=== PATIENT | female | born 1970 | race Hispanic/Latino ===

== ENCOUNTER 2017-10-20 08:59 | Emergency (ER) | payer SELFPAY ==
[2017-10-20] MEDS ORDERED: KETOROLAC 30 MG/ML INJ ONE (09:46)
[2017-10-20] MEDS ORDERED: ONDANSETRON 4 MG/2 ML VIAL ONE (09:46)
[2017-10-20] MEDS ORDERED: NA CHLORIDE 0.9% 1,000 ML ONE (09:46)
[2017-10-20 10:12] LABS: Absolute Lymphocytes (CBC) 2.4 K/uL (0.7-4.9); Absolute Monocytes 0.4 K/uL (0.1-1.3); Absolute Neutrophil 3.8 K/uL (1.8-8.0); Basophils % 0.4 % (0-1.3); Eosinophils % 0.7 % (0-4.4); Hematocrit 37.7 % (36.0-45.0); Lymphocytes % 35.9 % (15.3-44.8); MCH 32.1 pg (27.0-35.0); MCV 96.4 fL (80-100); MPV 8.7 fL (7.6-11.3); Monocytes % 5.9 % (3.3-12.3); RBC Red Blood Cell Count 3.91 M/uL (3.86-4.86)
[2017-10-20 10:14] LABS: Urine Bacteria <20 /HPF (<20); Urine RBC <5 /HPF (NONE SEEN)
[2017-10-20 10:15] LABS: Urine Culture Reflex Order NOT NEEDED
[2017-10-20 10:16] LABS: Urine Blood TRACE (NEG); Urine Glucose NEGATIVE (NEG); Urine Protein NEGATIVE (NEG); Urine Specific Gravity 1.025 (1.005-1.030); Urine pH 6.5 (5.0-7.0)
[2017-10-20 10:18] LABS: Bicarbonate 27 mEq/L (21-31); Glucose Level 110 mg/dL (65-120); Lipase 20 U/L (22-51); Potassium 3.8 mEq/L (3.6-5.0); Sodium Level 138 mEq/L (135-145)
[2017-10-20 10:25] LABS: ALT/SGPT 22 IU/L (10-60); AST/SGOT 24 IU/L (10-42); Albumin 3.9 g/dL (3.2-5.5); Alkaline Phosphatase 90 IU/L (42-121); Amylase Level 36 U/L (28-100); BUN Blood Urea Nitrogen 19 mg/dL (6-20); Bilirubin Direct 0.1 mg/dL (0-0.2); Bilirubin Total 0.3 mg/dL (0.3-1.2)
--- NOTE | 2017-10-20 12:34 | ER ---
Nurse's Notes [facility] Name: lFores Brooks Age: 47 yrs Sex: Female : 1970 Arrival Date: 10/20/2017 Time: 09:03 Bed 15 Private MD: None, None Diagnosis: Low back pain Presentation: 10/20 09:15 Presenting complaint: Patient states: c/o low back pain that radiates to RLQ X 3 weeks, iw has gotten worse over past 4 days, denies injury, denies n/v/d, no pain with urination. Transition of care: patient was not received from another setting of care. Onset of symptoms was October 03, 2017. 09:15 Method Of Arrival: Wheelchair iw 09:15 Acuity: BEATRICE 3 iw 09:22 Risk Assessment: Do you want to hurt yourself or someone else? Patient reports no tw2 desire to harm self or others. Care prior to arrival: None. 09:22 Initial Sepsis Screen: Does the patient meet any 2 criteria? No. Patient's initial tw2 sepsis screen is negative. Does the patient have a suspected source of infection? No. Patient's initial sepsis screen is negative. 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 - Social history:: Smoking status: Patient/guardian denies using tobacco. - Ebola Screening: : Patient denies travel to an Ebola-affected area in the 21 days before illness onset. Screenin:22 Abuse screen: Denies threats or abuse. Nutritional screening: No deficits noted. tw2 Tuberculosis screening: No symptoms or risk factors identified. Fall Risk None identified. Assessment: 09:15 General: Appears in no apparent distress. obese, Behavior is calm, cooperative, tw2 appropriate for age. Pain: Complains of pain in abdomen Pain radiates to back. Neuro: Level of Consciousness is awake, alert, obeys commands, Oriented to person, place, time, situation. Cardiovascular: Denies chest pain, shortness of breath, Heart tones S1 S2 Capillary refill < 3 seconds Patient's skin is warm and dry. Respiratory: Airway is patent Respiratory effort is even, unlabored, Respiratory pattern is regular, symmetrical, Breath sounds are clear bilaterally. GI: Abdomen is round non-distended, obese, Bowel sounds present X 4 quads. Reports lower abdominal pain, upper abdominal pain. : No signs and/or symptoms were reported regarding the genitourinary system. EENT: No signs and/or symptoms were reported regarding the EENT system. Derm: No signs and/or symptoms reported regarding the dermatologic system. Skin is intact, is healthy with good turgor, Skin temperature is warm. Musculoskeletal: Range of motion: intact in all extremities. 10:10 Reassessment: pt taken to scan at this time. tw2 10:34 Reassessment: Patient appears in no apparent distress at this time. No changes from tw2 previously documented assessment. Patient and/or family updated on plan of care and expected duration. Pain level reassessed. Patient is alert, oriented x 3, equal unlabored respirations, skin warm/dry/pink. 11:25 Reassessment: Patient appears in no apparent distress at this time. No changes from tw2 previously documented assessment. Patient and/or family updated on plan of care and expected duration. Pain level reassessed. Patient is alert, oriented x 3, equal unlabored respirations, skin warm/dry/pink. 12:00 Reassessment: Patient appears in no apparent distress at this time. No changes from tw2 previously documented assessment. Patient and/or family updated on plan of care and expected duration. Pain level reassessed. Patient is alert, oriented x 3, equal unlabored respirations, skin warm/dry/pink. 12:54 Reassessment: Patient appears in no apparent distress at this time. No changes from tw2 previously documented assessment. Patient and/or family updated on plan of care and expected duration. Pain level reassessed. Patient is alert, oriented x 3, equal unlabored respirations, skin warm/dry/pink. Vital Signs: 09:21 BP 161 / 85; Pulse 76; Resp 18; Pulse Ox 96% on R/A; tw2 10:34 BP 122 / 71; Pulse 64; Resp 17; Pulse Ox 97% on R/A; tw2 11:25 BP 125 / 65; Pulse 62; Resp 17; Pulse Ox 98% on R/A; tw2 11:28 Temp 98.4(O); tw2 12:00 BP 121 / 99; Pulse 63; Resp 17; Pulse Ox 99% on R/A; tw2 12:53 BP 116 / 52; Pulse 67; Resp 17; Pulse Ox 97% on R/A; tw2 ED Course: 09:03 Patient arrived in ED. mr 09:04 None, None is Private Physician. mr 09:15 Umair Grady PA is PHCP. cp 09:15 Rosas Cope MD is Attending Physician. cp 09:16 Palmira Scanlon, RUBINA is Primary Nurse. tw2 09:21 Arm band placed on. tw2 09:21 Placed in gown. Bed in low position. Call light in reach. Adult w/ patient. Pulse ox tw2 on. NIBP on. 09:31 Triage completed. iw 09:50 Radiology exam delayed due to test not completed at this time. cw1 10:01 Note: neg upt per nicci king tech. cw1 10:07 Missed attempt(s): 22 gauge in right forearm. antecubital area. mh5 10:07 Initial lab(s) drawn, by wv, sent to lab. Urine collected: clean catch specimen, clear. mh5 10:08 Amylase, Serum Sent. mh5 10:09 Basic Metabolic Panel Sent. mh5 10:09 CBC with Diff Sent. mh5 10:09 Creatinine for Radiology Sent. mh5 10:10 Hepatic Function Sent. mh5 10:10 Lipase Sent. mh5 10:11 No provider procedures requiring assistance completed. Inserted saline lock: 22 gauge tw2 in left antecubital area, using aseptic technique. Blood collected. 10:21 CT completed. Patient tolerated procedure well. Patient moved back from CT. cw1 10:21 CT Stone Protocol In Process Unspecified. EDMS 12:55 Awaiting: completion of iv fluids prior to discharge. tw2 13:09 IV discontinued, intact, bleeding controlled, No redness/swelling at site. Pressure tw2 dressing applied. Administered Medications: 10:00 Drug: Zofran 4 mg Route: IVP; Site: left antecubital; tw2 11:27 Follow up: Response: No adverse reaction tw2 10:02 Drug: TORadol 30 mg Route: IVP; Site: left antecubital; tw2 11:27 Follow up: Response: No adverse reaction; Pain is decreased tw2 10:04 Drug: NS 0.9% 1000 ml Route: IV; Rate: 1 bolus; Site: left antecubital; tw2 12:54 Follow up: Response: No adverse reaction; IV Status: Completed infusion; IV Intake: tw2 1000ml Intake: 12:54 IV: 1000ml; Total: 1000ml. tw2 Outcome: 12:34 Discharge ordered by MD. aleksandra 13:09 Discharged to home ambulatory, with friend. tw2 13:09 Condition: stable 13:09 Discharge instructions given to patient, friend, Instructed on discharge instructions, follow up and referral plans. no drinking with medication, no driving heavy equipment, medication usage, Demonstrated understanding of instructions, follow-up care, medications, Prescriptions given X 2. 13:10 Patient left the ED. tw2 Signatures: Dispatcher [employer] EDKY Erika Fagan Irene, RN Renetta Smith 1 Umair Grady PA PA cp Wise, Tara, RN RN 2 Erika Haley [facility]
--- NOTE | 2017-10-20 12:34 | EDPHYS ---
Physician Documentation [facility] Name: Flores Brooks Age: 47 yrs Sex: Female : 1970 Arrival Date: 10/20/2017 Time: 09:03 Bed 15 Private MD: None, None ED Physician Rosas Cope HPI: 10/20 09:47 This 47 yrs old Female presents to ER via Wheelchair with complaints of Back cp Pain, Abdominal Pain. 09:47 The patient complains of pain in the right mid back and right low back. The pain cp radiates to the abdomen. Onset: The symptoms/episode began/occurred 4 day(s) ago. Modifying factors: The symptoms are alleviated by nothing. the symptoms are aggravated by nothing. Associated signs and symptoms: Pertinent negatives: diarrhea, dysuria, fever, pain radiating to the lower extremities, vomiting. Severity of pain: in the emergency department the pain has improved mildly. 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 - Social history:: Smoking status: Patient/guardian denies using tobacco. - Ebola Screening: : Patient denies travel to an Ebola-affected area in the 21 days before illness onset. ROS: 09:48 Eyes: Negative for injury, pain, redness, and discharge. cp 09:48 Constitutional: Negative for body aches, chills, fever, poor PO intake. 09:48 ENT: Negative for drainage from ear(s), ear pain, sore throat, difficulty swallowing, difficulty handling secretions. 09:48 Cardiovascular: Negative for chest pain, edema, palpitations. 09:48 Respiratory: Negative for cough, shortness of breath, wheezing. 09:48 Back: Positive for flank pain, on the right. 09:48 : Negative for urinary symptoms. 09:48 Skin: Negative for cellulitis, rash. 09:48 Neuro: Negative for altered mental status, headache, weakness. 09:48 All other systems are negative. Exam: 10:00 Constitutional: The patient appears in no acute distress, alert, awake, non-toxic, well cp developed, well nourished, obese. 10:00 Head/Face: Normocephalic, atraumatic. Eyes: Pupils equal round and reactive to light, cp extra-ocular motions intact. Lids and lashes normal. Conjunctiva and sclera are non-icteric and not injected. Cornea within normal limits. Periorbital areas with no swelling, redness, or edema. ENT: Nares patent. No nasal discharge, no septal abnormalities noted. Tympanic membranes are normal and external auditory canals are clear. Oropharynx with no redness, swelling, or masses, exudates, or evidence of obstruction, uvula midline. Mucous membranes moist. Chest/axilla: Normal chest wall appearance and motion. Nontender with no deformity. No lesions are appreciated. 10:00 Cardiovascular: Rate: normal, Rhythm: regular, Edema: is not appreciated, JVD: is not appreciated. 10:00 Respiratory: the patient does not display signs of respiratory distress, Respirations: normal, no use of accessory muscles, no retractions, no splinting, no tachypnea, labored breathing, is not present, Breath sounds: are clear throughout, no decreased breath sounds, no stridor, no wheezing. 10:00 Abdomen/GI: Inspection: obese Bowel sounds: active, all quadrants, Palpation: abdomen is soft and non-tender, in all quadrants, rebound tenderness, is not appreciated, voluntary guarding, is not appreciated, involuntary guarding, is not appreciated. 10:00 Back: pain, that is mild, of the right low back, ROM is normal, vertebral tenderness, is not appreciated, muscle spasm, is not present, Straight leg raises: of both lower extremities does not illicit pain. 10:00 Skin: cellulitis, is not appreciated, no rash present. cp 10:00 Neuro: Orientation: to person, place \T\ time. Mentation: lucid, able to follow commands, cp Motor: moves all fours, strength is normal, Sensation: no obvious gross deficits, Gait: is steady, at a normal pace, without difficulty. Vital Signs: 09:21 BP 161 / 85; Pulse 76; Resp 18; Pulse Ox 96% on R/A; tw2 10:34 BP 122 / 71; Pulse 64; Resp 17; Pulse Ox 97% on R/A; tw2 11:25 BP 125 / 65; Pulse 62; Resp 17; Pulse Ox 98% on R/A; tw2 11:28 Temp 98.4(O); tw2 12:00 BP 121 / 99; Pulse 63; Resp 17; Pulse Ox 99% on R/A; tw2 12:53 BP 116 / 52; Pulse 67; Resp 17; Pulse Ox 97% on R/A; tw2 MDM: 09:15 Patient medically screened. 12:31 Data reviewed: vital signs, nurses notes, lab test result(s), radiologic studies, CT cp scan, and as a result, I will discharge patient. 10/20 09:31 Order name: Urine Dipstick--Ancillary (enter results); Complete Time: 10: 10/20 10:27 Interpretation: Normal except: UBLD TRACE. 10/20 09:31 Order name: Urine --Ancillary (enter results); Complete Time: 10: 10/20 09:38 Order name: Amylase, Serum; Complete Time: 10:27 10/20 09:38 Order name: Basic Metabolic Panel; Complete Time: 10:27 10/20 10:27 Interpretation: Normal except: CRE 0.43. 10/20 09:38 Order name: CBC with Diff; Complete Time: 10:27 10/20 09:38 Order name: Creatinine for Radiology; Complete Time: 10:27 10/20 09:38 Order name: Urine Test (obtain specimen); Complete Time: 10:10 10/20 09:38 Order name: Hepatic Function; Complete Time: 10:27 10/20 11:09 Interpretation: Reviewed. 10/20 09:38 Order name: Lipase; Complete Time: 10:27 10/20 10:27 Interpretation: LIP 20; Reviewed. 10/20 09:38 Order name: Urine Microscopic Only; Complete Time: 10:27 10/20 11:46 Interpretation: Reviewed. 10/20 09:39 Order name: CT Stone Protocol 10/20 09:38 Order name: IV Saline Lock; Complete Time: 10:11 10/20 09:38 Order name: Labs collected and sent; Complete Time: 10:11 10/20 09:38 Order name: Urine Dipstick-Ancillary (obtain specimen); Complete Time: 10:11 cp Administered Medications: 10:00 Drug: Zofran 4 mg Route: IVP; Site: left antecubital; tw2 11:27 Follow up: Response: No adverse reaction tw2 10:02 Drug: TORadol 30 mg Route: IVP; Site: left antecubital; tw2 11:27 Follow up: Response: No adverse reaction; Pain is decreased tw2 10:04 Drug: NS 0.9% 1000 ml Route: IV; Rate: 1 bolus; Site: left antecubital; tw2 12:54 Follow up: Response: No adverse reaction; IV Status: Completed infusion; IV Intake: tw2 1000ml Disposition: 10/20/17 12:34 Discharged to Home. Impression: Low back pain. - Condition is Stable. - Discharge Instructions: Back Pain, Adult, Back Exercises, Aoco-ef-Spie. - Prescriptions for Naprosyn 500 mg Oral Tablet - take 1 tablet by ORAL route 2 times per day take with food; 20 tablet. Cyclobenzaprine 10 mg Oral Tablet - take 1 tablet by ORAL route every 8 hours As needed no driving while taking medication; 20 tablet. - Medication Reconciliation Form, Thank You Letter, Antibiotic Education, Prescription Opioid Use form. - Follow up: Private Physician; When: 1 - 2 days; Reason: Recheck today's complaints. - Problem is new. - Symptoms have improved. Addendum: 10/28/2017 11:52 Co-signature as Attending Physician, Rosas Cope MD Available for consultation at p s1 all times. . Signatures: Dispatcher [employer] EDKatherine De Santiago RN RN iw Umair Grady PA PA cp Palmira Scanlon RN RN tw2 Rosas Cope MD MD ps1 Corrections: (The following items were deleted from the chart) 10/20 13:10 12:34 10/20/2017 12:34 Discharged to Home. Impression: Low back pain. Condition is tw2 Stable. Forms are Medication Reconciliation Form, Thank You Letter, Antibiotic Education, Prescription Opioid Use. Follow up: Private Physician; When: 1 - 2 days; Reason: Recheck today's complaints. Problem is new. Symptoms have improved. cp
--- NOTE | 2017-10-20 13:32 | RAD REPORT ---
EXAM DESCRIPTION: CT - Stone Protocol - 10/20/2017 10:21 am CLINICAL HISTORY: Abdominal pain, right lower quadrant pain. Due to technical issues with the PACs system a final report could not be generated. Images were revie wed and findings telephoned to the clinician at the time of the study. COMPARISON: None. TECHNIQUE: Axial 5 mm thick images were obtained without oral or IV contrast. The [id number] span s the entirety of the system partially obscuring uppermost abdomen and lung bases. All CT scans are performed using dose optimization technique as appropriate and may include automated exposure control or mA/KV adjustment according to patient size. FINDINGS: No hydronephrosis is present and no obstructing ureteral calculi. No suspicious renal mass es. Isodense masses and pyelonephritis are not excluded on a stone protocol CT scan. Mostly contracte d urinary bladder shows no suspicious finding. Uterus and ovaries show no suspicious findings. IUD is in place appearing well positioned. Liver shows fatty infiltration. Liver size is normal with no focal liver lesion. Spleen and pancreas also without suspicious finding. No gallbladder or biliary tree abnormality identified. No significan t adrenal finding. No suspicious bowel findings. No appendicitis. No hernia, mass or bulky lymphadenopathy noted. No free air, free fluid or inflammatory stranding. Disc and bony degenerative changes are present. Patient has pronounced degenerative change in the fac et joints at L5-S1 resulting in spinal stenosis and S1 lateral recess stenosis. IMPRESSION: No appendicitis or other acute GI process seen. 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 Fatty infiltration of the liver. Advanced facet joint degenerative change at L5-S1 causing spinal stenosis and S1 lateral recess steno sis. Less significant degenerative changes elsewhere in the lumbar spine. Isodense masses and pyelonephritis are not excluded on stone protocol technique.
== END 2017-10-20 13:10 | disposition home or self-care (01) ==
LOC: ER 08:59
DX: M54.5 Low back pain (principal); I10 Essential (primary) hypertension
CPT/HCPCS: 36415; 74176; 76377; 80048; 80076; 81003; 81015; 81025; 82150; 83690; 85025; 96361; 96374; 96375; 99284; J2405; J7030

== ENCOUNTER 2021-07-17 16:08 | Emergency (ER) | payer SELFPAY ==
[2021-07-17 18:34] LABS: SARS-COV-2 RT PCR NEGATIVE (NEGATIVE)
--- NOTE | 2021-07-17 18:46 | EDPHYS ---
Physician Documentation [facility] Name: Flores Brooks Age: 51 yrs Sex: Female : 1970 Arrival Date: 07/17/2021 Time: 16:11 Bed 12 Private MD: ED Physician Umair Kennedy HPI: 07/17 18:44 This 51 yrs old Female presents to ER via Ambulatory with complaints of Sore jr8 Throat. 18:44 Onset: The symptoms/episode began/occurred gradually. Severity of symptoms: At their jr8 worst the symptoms were mild, in the emergency department the symptoms are unchanged. Modifying factors: The symptoms are alleviated by nothing, the symptoms are aggravated by nothing. Associated signs and symptoms: The patient has no apparent associated signs or symptoms. The patient has not experienced similar symptoms in the past. The patient has not recently seen a physician. Historical: - Allergies: 16:37 NKA; ph - PMHx: 16:37 Hypertension; Diabetes mellitus; ph - Immunization history:: Adult Immunizations unknown. - Social history:: Smoking status: unknown. ROS: 18:44 Eyes: Negative for injury, pain, redness, and discharge, Neck: Negative for injury, jr8 pain, and swelling, Cardiovascular: Negative for chest pain, palpitations, and edema, Respiratory: Negative for shortness of breath, cough, wheezing, and pleuritic chest pain, Abdomen/GI: Negative for abdominal pain, nausea, vomiting, diarrhea, and constipation, Back: Negative for injury and pain, MS/Extremity: Negative for injury and deformity, Skin: Negative for injury, rash, and discoloration, Neuro: Negative for headache, weakness, numbness, tingling, and seizure. 18:44 ENT: Positive for sore throat. Exam: 18:44 Eyes: Pupils equal round and reactive to light, extra-ocular motions intact. Lids and jr8 lashes normal. Conjunctiva and sclera are non-icteric and not injected. Cornea within normal limits. Periorbital areas with no swelling, redness, or edema. ENT: Nares patent. No nasal discharge, no septal abnormalities noted. Tympanic membranes are normal and external auditory canals are clear. Oropharynx with no redness, swelling, or masses, exudates, or evidence of obstruction, uvula midline. Mucous membranes moist. Neck: Trachea midline, no thyromegaly or masses palpated, and no cervical lymphadenopathy. Supple, full range of motion without nuchal rigidity, or vertebral point tenderness. No Meningismus. Cardiovascular: Regular rate and rhythm with a normal S1 and S2. No gallops, murmurs, or rubs. Normal PMI, no JVD. No pulse deficits. Respiratory: Lungs have equal breath sounds bilaterally, clear to auscultation and percussion. No rales, rhonchi or wheezes noted. No increased work of breathing, no retractions or nasal flaring. Abdomen/GI: Soft, non-tender, with normal bowel sounds. No distension or tympany. No guarding or rebound. No evidence of tenderness throughout. Skin: Warm, dry with normal turgor. Normal color with no rashes, no lesions, and no evidence of cellulitis. MS/ Extremity: Pulses equal, no cyanosis. Neurovascular intact. Full, normal range of motion. Neuro: Awake and alert, GCS 15, oriented to person, place, time, and situation. Cranial nerves II-XII grossly intact. Motor strength 5/5 in all extremities. Sensory grossly intact. Vital Signs: 16:35 BP 155 / 77; Pulse 69; Resp 18; Temp 99.0; Pulse Ox 98% on R/A; ph 19:06 Pulse 70; Resp 17 S; Pulse Ox 99% on R/A; jd3 MDM: 18:33 Patient medically screened. [facility] 18:44 Data reviewed: vital signs, nurses notes, lab test result(s), and as a result, I will [facility] discharge patient. Data interpreted: Pulse oximetry: on room air is 98 %. Interpretation: normal. Counseling: I had a detailed discussion with the patient and/or guardian regarding: the historical points, exam findings, and any diagnostic results supporting the discharge/admit diagnosis, lab results, the need for outpatient follow up, a family practitioner, to return to the emergency department if symptoms worsen or persist or if there are any questions or concerns that arise at home. 07/17 16:38 Order name: Strep; Complete Time: 18:36 ph 07/17 16:39 Order name: Group A Streptococcus Rapid Sc; Complete Time: 18:33 EDMS 07/17 17:29 Order name: Throat Culture EDMS Administered Medications: 18:53 Drug: SOLU-Medrol (methylPREDNISolone sodium succinate) 125 mg Route: IM; Site: left jd3 deltoid; Disposition Summary: 07/17/21 18:46 Discharge Ordered Location: Home jr8 Problem: new jr8 Symptoms: have improved jr8 Condition: Stable jr8 Diagnosis - Acute laryngopharyngitis jr8 Followup: jr8 - With: Private Physician - When: 2 - 3 days - Reason: Recheck today's complaints, Continuance of care, Re-evaluation by your physician Discharge Instructions: - Discharge Summary Sheet jr8 - Laryngitis jr8 - Pharyngitis jr8 Forms: - Medication Reconciliation Form jr8 - Thank You Letter jr8 - Antibiotic Education jr8 - Prescription Opioid Use jr8 Prescriptions: - Tessalon Perles 100 mg Oral Capsule - take 1 capsule by ORAL route every 8 hours As needed; 15 capsule; Refills: 0, jr8 Product Selection Permitted Signatures: Dispatcher [employer] EDMS Yoel Vee PA PA jr8 Yarely Souza RN RN Felipe Champion RN RN jd3 Corrections: (The following items were deleted from the chart) 17:53 16:41 COVID-19/FLU [id number] ordered. EDMS EDMS
--- NOTE | 2021-07-17 18:46 | ER ---
Nurse's Notes [facility] Name: Flores Brooks Age: 51 yrs Sex: Female : 1970 Arrival Date: 07/17/2021 Time: 16:11 Bed 12 Private MD: Diagnosis: Acute laryngopharyngitis Presentation: 07/17 16:35 Chief complaint: Patient states: Cough for 2 weeks, also reports sore throat, body ph aches, fever, headache, ad rib pain that she believes is r/t cough, denies SOB, N/V/D. Coronavirus screen: Client presents with at least one sign or symptom that may indicate coronavirus-19. Ebola Screen: No symptoms or risks identified at this time. 16:35 Method Of Arrival: Ambulatory ph 16:37 Initial Sepsis Screen: Does the patient meet any 2 criteria? No. Patient's initial ph sepsis screen is negative. Does the patient have a suspected source of infection? No. Patient's initial sepsis screen is negative. Risk Assessment: Do you want to hurt yourself or someone else? Patient reports no desire to harm self or others. Onset of symptoms was July 17, 2021. 16:37 Acuity: BEATRICE 4 ph Historical: - Allergies: 16:37 NKA; ph - PMHx: 16:37 Hypertension; Diabetes mellitus; ph - Immunization history:: Adult Immunizations unknown. - Social history:: Smoking status: unknown. Screenin:05 Abuse screen: Denies threats or abuse. Nutritional screening: No deficits noted. jd3 Tuberculosis screening: No symptoms or risk factors identified. Fall Risk Ambulatory Aid- None/Bed Rest/Nurse Assist (0 pts). Gait- Normal/Bed Rest/Wheelchair (0 pts) Mental Status- Oriented to own ability (0 pts). Total Dorman Fall Scale indicates No Risk (0-24 pts). Assessment: 19:05 General: Appears in no apparent distress. comfortable, Behavior is calm, cooperative, jd3 appropriate for age. Pain: Complains of pain in throat. Neuro: Level of Consciousness is awake, alert, obeys commands, Oriented to person, place, time, situation. Cardiovascular: Denies chest pain, Capillary refill < 3 seconds Patient's skin is warm and dry. Respiratory: Reports cough that is persistent Airway is patent Respiratory effort is even, unlabored, Respiratory pattern is regular, symmetrical. GI: No signs and/or symptoms were reported involving the gastrointestinal system. : No signs and/or symptoms were reported regarding the genitourinary system. EENT: Throat is reddened. Derm: Skin is intact, Skin is dry, Skin is normal, Skin temperature is warm. Musculoskeletal: Circulation, motion, and sensation intact. Range of motion: intact in all extremities. Vital Signs: 16:35 BP 155 / 77; Pulse 69; Resp 18; Temp 99.0; Pulse Ox 98% on R/A; ph 19:06 Pulse 70; Resp 17 S; Pulse Ox 99% on R/A; jd3 ED Course: 16:11 Patient arrived in ED. ds1 16:37 Triage completed. ph 16:37 Arm band placed on Patient placed. ph 18:33 Yoel Vee PA is PHCP. jr8 18:33 Umair Kennedy MD is Attending Physician. jr8 18:46 Mitra Mark RN is Primary Nurse. ke1 18:53 Primary Nurse role handed off by Mitra Mark RN j 18:53 Felipe Champion RN is Primary Nurse. jd3 19:06 Patient has correct armband on for positive identification. Bed in low position. Call jd3 light in reach. Side rails up X 1. Pulse ox on. NIBP on. 19:06 No provider procedures requiring assistance completed. Patient did not have IV access jd3 during this emergency room visit. Administered Medications: 18:53 Drug: SOLU-Medrol (methylPREDNISolone sodium succinate) 125 mg Route: IM; Site: left jd3 deltoid; Outcome: 18:46 Discharge ordered by . jr8 19:08 Condition: stable jd3 19:08 Discharge instructions given to patient, Instructed on discharge instructions, follow up and referral plans. medication usage, Demonstrated understanding of instructions, follow-up care, medications, Prescriptions given X 1. 19:11 Discharged to home ambulatory, with family. jd3 19:12 Patient left the ED. jd3 Signatures: Reva De Los Santos ds1 Yoel Vee PA PA jr8 Yarely Souza RN RN Felipe Champion RN RN j Ebrottie, Kouassi, RN RN ke1
[2021-07-17] MEDS ORDERED: METHYLPREDNISOLONE 125 MG INJ ONE (18:51)
[2021-07-17 20:12] VITALS: BP 155/77; TEMP 99
[2021-07-17 20:14] VITALS: O2SAT 99
== END 2021-07-17 19:12 | disposition home or self-care (01) ==
LOC: ER 16:08
DX: J06.0 Acute laryngopharyngitis (principal); I10 Essential (primary) hypertension; Z20.822 Contact with and (suspected) exposure to COVID-19
CPT/HCPCS: 0240U; 87070; 87081; 96372; 99283; J2930

== ENCOUNTER 2024-04-15 18:19 | Inpatient (IN) | payer SELFPAY ==
--- OUTSIDE RECORDS SUMMARY | 2024-04-15 18:23 | XMS REPORT | Continuity of Care Document ---
Author Name Unknown Address [address] [facility] [place] [address] [facility] thconnect Address [address] [facility] [place] [address] Care Team Providers Care [employer] Name Role Phone PCP, PATIENT DOES NOT HAVE A Primary Care Physic monse Unavailable Vanessa Nayak NP Attending Clinician VANESSA NAYAK Attending Clinician Unavailable Payers Payer Name Policy Type Policy Number Effective Date Expirati on Date Source Problems Condition Name Condition Details Condition Category Status Onset Date Resolution Date Last Treatment Date Treating Clinician Comments Source Trigeminal neuralgia Trigeminal neuralgia Disease Recurre nce 01-16 00:00: 00 Overview: Formattin g of this note might be different from the original. Chronic problem General acute hospital COVID-19 COVID-19 Disease Active 01-16 00:00: 00 General acute hospital Encounter for medication refill Encounter for medication refill Disease Active 01-16 00:00: 00 General acute hospital Primary hypertensi on Primary hypertensi on Disease Active 01-16 00:00: 00 General acute hospital Face pain Face pain Disease Active 06-30 00:00: 00 General acute hospital Allergies, Adverse Reactions, Alerts Allergy Name Allergy Type Status Severity Reaction(s) Onset Date Inactive Date Treating Clinician Comments Source NO KNOWN ALLERGIE S Drug Class Active General acute hospital Social History Social Habit Start Date Stop Date Quantity Comments Source Sexual orientation U [facility] Sex assigned at 1970 00:00:00 1970 00:00:00 [facility] Smoking Status Start Date Stop Date Source Tobacco smoking consumption unknown [facility] Medications Ordered Medication Name Filled Medication Name Start Date Stop Date Current Medication? Ordering Clinician Indication Dosage Frequency Signature (SIG) Comments Components Source acetaminoph en (TYLENOL) tablet 650 mg 01-16 14:30: 00 01-16 14:38 :00 No 650mg 650 mg, Oral, ONCE, 1 dose, On Sat01/17/24 at 0930, LINDSAY General acute hospital amLODIPine 10 mg tablet 01-16 00:00: 00 02-16 04:59 :00 Yes [id number] 10mg Take 1 tablet by mouth daily for 30 days. General acute hospital lisinopriL- hydrochloro thiazide 20-25 mg per tablet 01-16 00:00: 00 02-16 04:59 :00 Yes [id number] 1{tbl} Take 1 tablet by mouth daily for 30 days. General acute hospital triamcinolo ne acetonide 0.1 % topical cream 10-02 00:00: 00 Yes % Ricardo Shital Van clobetasol 0.05 % scalp solution 10-02 00:00: 00 Yes % Ricardo Shital Van carbamazepi ne 200 mg tablet 09-26 00:00: 00 Yes mg Ricardo Araujo INSTILL 1-2 DROPS INTO EACH EAR TWICE DAILY FOR 2 WEEKS PER MONTH. 09-18 00:00: 00 Yes Ricardo Shital Van triamcinolo ne acetonide 0.1 % topical cream 09-11 00:00: 00 Yes % Ricardo Shital Van atorvastati n 40 mg tablet 2022-05 00:00: 00 Yes mg Ricardo Araujo metformin 500 mg tablet 2022-05 00:00: 00 Yes mg Ricardo Araujo amlodipine 10 mg tablet 2022-05 00:00: 00 Yes mg Ricardo Araujo lisinopril 20 mg-hydrochl orothiazide 25 mg tablet 2023-1 1-16 00:00: 00 Yes mg Ricardo Araujo TAKE 1 TABLET DAILY. 2022-05 0-16 00:00: 00 10-03 00:00 :00 No [id number] Ricardo Araujo TAKE 1 TABLET DAILY. 2022-05 016 00:00: 00 10-03 00:00 :00 No 40 Ricardo Araujo TAKE 1 TABLET DAILY. 2022-05 00:00: 00 10-03 00:00 :00 No 500 Ricardo Araujo TAKE 1 TABLET DAILY. 2022-05 016 00:00: 00 10-03 00:00 :00 No 10 Ricardo Aarujo TAKE 3 TABLETS BY MOUTH THREE TIMES DAILY 01-09 00:00: 00 Yes Ricardo Araujo TAKE 1 TABLET DAILY. 12-26 00:00: 00 Yes 40 Ricardo Araujo TAKE 1 TABLET DAILY. 12-26 00:00: 00 Yes Ricardo Araujo Dose Unknown 12-26 00:00: 00 Yes Ricardo Araujo Dose Unknown 12-26 00:00: 00 Yes Ricardo Araujo TAKE 1 TABLET DAILY. 12-20 00:00: 00 Yes Ricardo Araujo TAKE 1 TABLET DAILY. 12-20 00:00: 00 No [id number] amlodipine 10 mg tablet 12-08 00:00: 00 Yes 1mg Ricardo Araujo metformin 500 mg tablet 12-08 00:00: 00 Yes 1mg Ricardo Araujo lisinopril 20 mg-hydrochl orothiazide 12.5 mg tablet 12-08 00:00: 00 Yes 1mg Ricardo Araujo atorvastati n 20 mg tablet 12-08 00:00: 00 Yes 2mg Ricardo Araujo amlodipine 10 mg tablet 12-08 00:00: 00 No 1mg metformin 500 mg tablet 12-08 00:00: 00 No 1mg lisinopril 20 mg-hydrochl orothiazide 12.5 mg tablet 12-08 00:00: 00 No 1mg atorvastati n 20 mg tablet 12-08 00:00: 00 No 2mg ketoconazol e 2 % shampoo 11-25 00:00: 00 Yes 1% Ricardo Araujo metformin 500 mg tablet 11-25 00:00: 00 Yes 1mg iRcardo Araujo amlodipine 10 mg tablet 11-25 00:00: 00 Yes 1mg Ricardo Araujo lisinopril 20 mg-hydrochl orothiazide 12.5 mg tablet 11-25 00:00: 00 Yes 1mg Ricardo Araujo atorvastati n 20 mg tablet 11-25 00:00: 00 Yes 1mg Ricardo Araujo clobetasol 0.05 % scalp solution 11-25 00:00: 00 Yes 1% Ricardo Araujo ketoconazol e 2 % shampoo 11-25 00:00: 00 No 1% metformin 500 mg tablet 11-25 00:00: 00 No 1mg amlodipine 10 mg tablet 11-25 00:00: 00 No 1mg lisinopril 20 mg-hydrochl orothiazide 12.5 mg tablet 11-25 00:00: 00 No 1mg atorvastati n 20 mg tablet 11-25 00:00: 00 No 1mg clobetasol 0.05 % scalp solution 11-25 00:00: 00 No 1% ProAir HFA 90 mcg/actuati on aerosol inhaler 06-09 00:00: 00 Yes 2mcg/ac tuation Ricardo Araujo Bromfed DM 2 mg-30 mg-10 mg/5 mL oral syrup 06-09 00:00: 00 Yes 10mg/5 mL Ricardo Araujo ProAir HFA 90 mcg/actuati on aerosol inhaler 06-09 00:00: 00 No 2mcg/ac tuation Bromfed DM 2 mg-30 mg-10 mg/5 mL oral syrup 06-09 00:00: 00 No 10mg/5 mL metformin 500 mg tablet 01-06 00:00: 00 Yes 1mg Ricardo Araujo amlodipine 10 mg tablet 01-06 00:00: 00 Yes 1mg Ricardo Araujo lisinopril 20 mg-hydrochl orothiazide 12.5 mg tablet 8 00:00: 00 Yes 1mg Ricardo Araujo atorvastati n 20 mg tablet 8 00:00: 00 Yes 1mg Ricardo Araujo metformin 500 mg tablet 8 00:00: 00 No 1mg amlodipine 10 mg tablet 8- 00:00: 00 No 1mg lisinopril 20 mg-hydrochl orothiazide 12.5 mg tablet 8 00:00: 00 No 1mg atorvastati n 20 mg tablet 01-06 00:00: 00 No 1mg metformin 500 mg tablet 11-30 00:00: 00 Yes 1mg Ricardo Araujo lisinopril 20 mg-hydrochl orothiazide 12.5 mg tablet 11-30 00:00: 00 Yes 1mg Ricardo Araujo atorvastati n 20 mg tablet 11-30 00:00: 00 Yes 1mg Ricardo Aruajo metformin 500 mg tablet 11-30 00:00: 00 No 1mg lisinopril 20 mg-hydrochl orothiazide 12.5 mg tablet 11-30 00:00: 00 No 1mg atorvastati n 20 mg tablet 11-30 00:00: 00 No 1mg metformin 500 mg tablet 11-01 00:00: 00 Yes 1mg Ricardo Araujo lisinopril 20 mg-hydrochl orothiazide 12.5 mg tablet 11-01 00:00: 00 Yes 1mg Ricardo Araujo atorvastati n 20 mg tablet 11-01 00:00: 00 Yes 1mg Ricardo Araujo metformin 500 mg tablet 11-01 00:00: 00 No 1mg lisinopril 20 mg-hydrochl orothiazide 12.5 mg tablet 11-01 00:00: 00 No 1mg atorvastati n 20 mg tablet 11-01 00:00: 00 No 1mg triamcinolo ne acetonide 0.1 % topical ointment 24 00:00: 00 Yes 1% Ricardo Araujo ketoconazol e 2 % shampoo 09-17 00:00: 00 Yes 1% Ricardo Araujo triamcinolo ne acetonide 0.1 % topical ointment 09-17 00:00: 00 No 1% ketoconazol e 2 % shampoo 09-17 00:00: 00 No 1% metformin 500 mg tablet 2017-05 00:00: 00 Yes 1mg Ricardo Araujo metformin 500 mg tablet 2017-05 00:00: 00 No 1mg lisinopril 20 mg-hydrochl orothiazide 12.5 mg tablet 2017-05 00:00: 00 Yes 1mg Ricardo Araujo lisinopril 20 mg-hydrochl orothiazide 12.5 mg tablet 2017-05 00:00: 00 No 1mg lisinopril 20 mg-hydrochl orothiazide 12.5 mg tablet 10-01 00:00: 00 Yes 1mg Ricardo Araujo lisinopril 20 mg-hydrochl orothiazide 12.5 mg tablet 10-01 00:00: 00 No 1mg lisinopril 20 mg tablet 02-08 00:00: 00 Yes 1mg Ricardo Araujo lisinopril 20 mg tablet 02-08 00:00: 00 No 1mg lisinopril 20 mg-hydrochl orothiazide 12.5 mg tablet 2015-05 00:00: 00 Yes 1mg Ricardo Araujo lisinopril 20 mg-hydrochl orothiazide 12.5 mg tablet 2015-05 00:00: 00 No 1mg lisinopril 20 mg-hydrochl orothiazide 12.5 mg tablet 07-31 00:00: 00 Yes 1mg Ricardo Araujo lisinopril 20 mg-hydrochl orothiazide 12.5 mg tablet 07-31 00:00: 00 No 1mg lisinopril 20 mg-hydrochl orothiazide 12.5 mg tablet 02-21 00:00: 00 Yes 1mg Ricardo Araujo lisinopril 20 mg-hydrochl orothiazide 12.5 mg tablet 02-21 00:00: 00 No 1mg lisinopril 20 mg-hydrochl orothiazide 12.5 mg tablet 02-18 00:00: 00 Yes 1mg Ricardo Araujo lisinopril 20 mg-hydrochl orothiazide 12.5 mg tablet 02-18 00:00: 00 No 1mg lisinopril 20 mg-hydrochl orothiazide 12.5 mg tablet 10-26 00:00: 00 Yes 1mg Ricardo Araujo lisinopril 20 mg-hydrochl orothiazide 12.5 mg tablet 10-26 00:00: 00 No 1mg lisinopril 20 mg-hydrochl orothiazide 12.5 mg tablet 10-25 00:00: 00 Yes 1mg Ricardo Araujo lisinopril 20 mg-hydrochl orothiazide 12.5 mg tablet 10-25 00:00: 00 No 1mg gabapentin (NEURONTIN) 300 mg tablet 06-11 00:00: 00 Yes 300mg Take 1 Tab by mouth 3 (three) times daily. General acute hospital baclofen (LIORESAL) 10 mg tablet 06-11 00:00: 00 Yes 10mg Take 1 Tab by mouth every 8 (eight) hours as needed for Pain. General acute hospital Immunizations Ordered Immunization Name Filled Immunization Name Date Status Comments Source Influenza, seasonal, inj Influenza, seasonal, inj 2016-05-24 00:00:00 Completed Ricardo Araujo Influenza, seasonal, inj 2016-05-24 00:00:00 Completed SARS-COV-2 COVID-19 PFIZER VACCINE Unknown Completed [facility] Vital Signs Vital Name Observation Time Observation Value Comments S ource Systolic blood pressure 2024-01-17 14:01:00 143 mm[Hg] [place] [facility] Diastolic blood pressure 2024-01-17 14:01:00 74 mm[Hg] [facility] Heart rate 2024-01-17 14:01:00 93 /min [facility] Body temperature 2024-01-17 14:01:00 39.44 [place] [facility] Respiratory rate 2024-01-17 14:01:00 18 /min [facility] Body height 2024-01-17 14:01:00 165 cm [facility] Body weight 2024-01-17 14:01:00 81.647 kg [facility] BMI 2024-01-17 14:01:00 29.99 kg/m2 [facility] Oxygen saturation in Arterial blood by Pulse oximetry 2024-01-17 14:01:00 95 /min [facility] Height Measured 2023-10-03 08:16:00 63.00 inches Ricardo F Van Body Temperature 2023-10-03 08:16:00 98.10 degrees Ricardo F Van Heart Rate 2023-10-03 08:16:00 70.00 /min Liv en F Van Respiratory Rate 2023-10-03 08:16:00 18.00 /min Ricardo F Van BP Systolic 2023-10-03 08:16:00 153 mm[Hg] Step hen F Van BP Diastolic 2023-10-03 08:16:00 88 mm[Hg] Andrea phen F Van Weight Measured 2023-10-03 08:16:00 190.40 pounds Ricardo F Van BP Systolic 2023-04-11 16:19:00 175 mm[Hg] Step hen F Van BP Diastolic 2023-04-11 16:19:00 85 mm[Hg] Andrea phen F Van Weight Measured 2023-04-11 16:19:00 190.60 pounds Ricardo F Van Height Measured 2023-04-11 16:19:00 63.00 inches Ricardo F Van Body Temperature 2023-04-11 16:19:00 98.20 degrees Ricardo F Van Heart Rate 2023-04-11 16:19:00 71.00 /min Liv en F Van Respiratory Rate 2023-04-11 16:19:00 19.00 /min Ricadro F Van BP Systolic 2023-03-11 16:24:00 179 mm[Hg] Step hen F Van BP Diastolic 2023-03-11 16:24:00 93 mm[Hg] Andrea phen F Van Weight Measured 2023-03-11 16:24:00 192.00 pounds Ricardo F Van Height Measured 2023-03-11 16:24:00 63.00 inches Ricardo F Van Body Temperature 2023-03-11 16:24:00 98.30 degrees Ricardo F Van Heart Rate 2023-03-11 16:24:00 64.00 /min Liv en F Van Respiratory Rate 2023-03-11 16:24:00 17.00 /min Ricardo F Van BP Systolic 2021-12-20 16:57:00 179 mm[Hg] Step hen F Van BP Diastolic 2021-12-20 16:57:00 84 mm[Hg] Andrea phen F Van Weight Measured 2021-12-20 16:57:00 193.00 pounds Ricardo F Van Height Measured 2021-12-20 16:57:00 63.00 inches Ricardo F Van Body Temperature 2021-12-20 16:57:00 97.40 degrees Ricardo F Van Heart Rate 2021-12-20 16:57:00 63.00 /min Liv en F Van Respiratory Rate 2021-12-20 16:57:00 Ricardo F Van BP Systolic 2020-11-25 16:20:00 194 mm[Hg] Step hen F Van BP Diastolic 2020-11-25 16:20:00 96 mm[Hg] Andrea phen F Van Weight Measured 2020-11-25 16:20:00 194.40 pounds Ricardo F Van Height Measured 2020-11-25 16:20:00 63.00 inches Ricardo F Van Body Temperature 2020-11-25 16:20:00 98.40 degrees Ricardo F Van Heart Rate 2020-11-25 16:20:00 71.00 /min Liv en F Van Respiratory Rate 2020-11-25 16:20:00 17.00 /min Ricardo F Van BP Systolic 2020-01-07 15:35:00 135 mm[Hg] Step hen F Van BP Diastolic 2020-01-07 15:35:00 78 mm[Hg] Andrea phen F Van Weight Measured 2020-01-07 15:35:00 189.60 pounds Ricardo F Van Height Measured 2020-01-07 15:35:00 63.00 inches Ricardo F Van Body Temperature 2020-01-07 15:35:00 98.40 degrees Ricardo F Van Heart Rate 2020-01-07 15:35:00 77.00 /min Liv en F Van Respiratory Rate 2020-01-07 15:35:00 17.00 /min Ricardo F Van BP Systolic 2019-12-10 15:46:00 142 mm[Hg] Step hen F Van BP Diastolic 2019-12-10 15:46:00 80 mm[Hg] Andrea phen F Van Weight Measured 2019-12-10 15:46:00 183.00 pounds Ricardo F Van Height Measured 2019-12-10 15:46:00 63.00 inches Ricardo F Van Body Temperature 2019-12-10 15:46:00 98.50 degrees Ricardo F Van Heart Rate 2019-12-10 15:46:00 68.00 /min Liv en F Van Respiratory Rate 2019-12-10 15:46:00 16.00 /min Ricardo F Van BP Systolic 2019-11-26 16:39:00 173 mm[Hg] Step hen F Van BP Diastolic 2019-11-26 16:39:00 88 mm[Hg] Andrea phen F Van Weight Measured 2019-11-26 16:39:00 182.80 pounds Ricardo F Van Height Measured 2019-11-26 16:39:00 63.00 inches Ricardo F Van Body Temperature 2019-11-26 16:39:00 98.60 degrees Ricardo F Van Heart Rate 2019-11-26 16:39:00 70.00 /min Liv en F Van Respiratory Rate 2019-11-26 16:39:00 Ricardo F Van BP Systolic 2019-11-26 16:26:00 173 mm[Hg] Step hen F Van BP Diastolic 2019-11-26 16:26:00 88 mm[Hg] Andrea phen F Van Weight Measured 2019-11-26 16:26:00 182.80 pounds Ricardo F Van Height Measured 2019-11-26 16:26:00 63.00 inches Ricardo F Van Body Temperature 2019-11-26 16:26:00 98.60 degrees Ricardo F Van Heart Rate 2019-11-26 16:26:00 70.00 /min Liv en F Van Respiratory Rate 2019-11-26 16:26:00 Ricardo F Van BP Systolic 2019-11-26 16:13:00 173 mm[Hg] Step hen F Van BP Diastolic 2019-11-26 16:13:00 88 mm[Hg] Andrea phen F Van Weight Measured 2019-11-26 16:13:00 182.80 pounds Ricardo F Van Height Measured 2019-11-26 16:13:00 63.00 inches Ricardo F Van Body Temperature 2019-11-26 16:13:00 98.60 degrees Ricardo F Van Heart Rate 2019-11-26 16:13:00 70.00 /min Liv en F Van Respiratory Rate 2019-11-26 16:13:00 Ricardo F Van BP Systolic 2018-11-01 15:37:00 147 mm[Hg] BP Diastolic 2018-11-01 15:37:00 73 mm[Hg] Weight Measured 2018-11-01 15:37:00 186.20 pounds Height Measured 2018-11-01 15:37:00 63.00 inches Body Temperature 2018-11-01 15:37:00 98.40 degrees Heart Rate 2018-11-01 15:37:00 68.00 /min Respiratory Rate 2018-11-01 15:37:00 16.00 /min BP Systolic 2018-09-17 16:50:00 129 mm[Hg] BP Diastolic 2018-09-17 16:50:00 77 mm[Hg] Weight Measured 2018-09-17 16:50:00 192.20 pounds Height Measured 2018-09-17 16:50:00 63.00 inches Body Temperature 2018-09-17 16:50:00 98.70 degrees Heart Rate 2018-09-17 16:50:00 87.00 /min Respiratory Rate 2018-09-17 16:50:00 BP Systolic 2018-05-16 16:30:00 138 mm[Hg] BP Diastolic 2018-05-16 16:30:00 81 mm[Hg] Weight Measured 2018-05-16 16:30:00 Height Measured 2018-05-16 16:30:00 Body Temperature 2018-05-16 16:30:00 Heart Rate 2018-05-16 16:30:00 88.00 /min Respiratory Rate 2018-05-16 16:30:00 Procedures Procedure Date / Time Performed Performing Clinicia n Source INFLUENZA A/B RSV COVID NAAT 2024-01-17 14:39:00 Vanessa Nayak [facility] POCT GLUCOSE (AUTOMATED) 2024-01-17 14:22:00 Vanessa Nayak [facility] Plan of Care Planned Activity Planned Date Details Comments Source Goal Plan of Care Note [code = 60988-1] Goal Plan of Care Note [code = 94383-4] Goal Plan of Care Note [code = 96566-2] Goal Plan of Care Note [code = 12608-7] Goal Plan of Care Note [code = 68129-3] Goal Plan of Care Note [code = 01677-5] Goal Plan of Care Note [code = 02332-7] Goal Plan of Care Note [code = 76575-7] Goal Plan of Care Note [code = 73014-6] Goal Plan of Care Note [code = 17961-6] Goal Plan of Care Note [code = 07155-2] Goal Plan of Care Note [code = 28992-6] Goal Plan of Care Note [code = 32780-0] Goal Plan of Care Note [code = 19982-0] Encounters Start Date/Time End Date/Time Encounter Type Admission Type Attending [facility] Care Department Encounter ID Source 2024-03-25 08:31:23 2024-03-25 08:31:23 Outpatient [facility] [id number] Ricardo Isaacs Van 2024 11:34:02 2024 11:34:02 Outpatient [facility] [id number] Ricardo Isaacs Van 2024-03-19 16:45:54 2024-03-19 16:45:54 Outpatient [facility] [id number] Ricardo Isaacs Van 2024-01-17 09:02:00 2024-01-17 11:36:00 Emergency Vanessa Nayak [facility] [id number] General acute hospital 2024-01-17 09:02:00 2024-01-17 11:36:00 Emergency X VANESSA NAYAK [facility] ERT [id number] General acute hospital 2023-10-03 08:06:20 2023-10-03 08:06:20 Outpatient [facility] [id number] Ricardo Araujo 2023-10-03 00:00:00 2023-10-03 00:00:00 Outpatient Visit [facility] [id number] Ricardo Araujo 2023-04-11 16:11:21 2023-04-11 16:11:21 Outpatient [facility] [id number] Ricardo Araujo 2023-03-28 16:39:51 2023-03-28 16:39:51 Outpatient [facility] [id number] Ricardo Araujo 2023-03-20 15:12:00 2023-03-20 15:12:00 Outpatient [facility] [id number] Ricardo Araujo 2023-03-11 17:15:38 2023-03-11 17:15:38 Outpatient [facility] [id number] Ricardo Araujo 2021-12-20 00:00:00 2021-12-20 00:00:00 Outpatient Visit [id number] Results Test Description Test Time Test Comments Results Result Co mments Source LIPID [id number] 04:33:43* Test Item Value Reference Range Interpretation Comme nts CHOLESTEROL (test code = 2210) 244 MG/DL <200 H TRIGLYCERIDES (test code = 2232) 174 MG/DL <150 H HDL CHOLESTEROL (test code = 2220) 73 MG/DL >39 CALC LDL CHOL (test code = 2237) 140 MG/DL <100 H NOTE: CALCULATED LDL IS BASED ON DANYA-GRIFFITHS METHOD WHICHINCLUDES ADJUSTABLE TRIGLYCERIDE:VLDL CHOLESTEROL RATIO.THIS FACTOR VARIES BY MEASURED TRIGLYCERIDE AND NON-HDLCHOLESTEROL CONCENTRATIONS WITH INCREASED CALCULATED LDL SEENIN HIGHER TRIGLYCERIDE OR LOWER NON-HDL SPECIMENS. FOR MOREINFORMATION, SEE CLIENT ANNOUNCEMENT AT [email or web address] RISK RATIO LDL/HDL (test code = 2238) 1.92 RATIO <3.22 CARBAMAZEPINE (TEGRETOL)2024-03-24 10:34:01* Test Item Value Reference Range Interpretation Comme nts CARBAMAZEPINE (TEGRETOL) (te st code = 3006) 12.7 UG/ML 4.0-12.0 H COMPREHENSIVE METABOLIC [id number] 09:15:05* Test Item Value Reference Range Interpretation Comme nts GLUCOSE (test code = 2216) 148 MG/DL 70-99 H BUN (test code = 2207) 16 MG/DL 6-20 CREATININE (test code = 2213) 0.41 MG/DL 0.60-1.30 L eGFR (2020 CKD-EPI) (test code = ) 118 ML/MIN/1.73 >60 CALC BUN/CREAT (test code = 2234) 39 RATIO 6-28 H SODIUM (test code = 2230) 138 MEQ/L 133-146 POTASSIUM (test code = 2227) 3.9 MEQ/L 3.5-5.4 CHLORIDE (test code = 2214) 99 MEQ/L 95-107 CARBON DIOXIDE (test code = 2205) 26 MEQ/L 19-31 CALCIUM (test code = 2208) 9.5 MG/DL 8.5-10.5 PROTEIN, TOTAL (test code = 2228) 7.3 G/DL 6.1-8.3 ALBUMIN (test code = 2200) 4.6 G/DL 3.5-5.2 CALC GLOBULIN (test code = 2239) 2.7 G/DL 1.9-3.7 CALC A/G RATIO (test code = 2233) 1.7 RATIO 1.0-2.6 BILIRUBIN, TOTAL (test code = 2206) 0.3 MG/DL <=1.2 ALKALINE PHOSPHATASE (test code = 2203) 147 U/L 40-132 H AST (test code = 2217) 22 U/L 9-40 ALT (test code = 2218) 24 U/L 5-40 CBC W/AUTO DIFF WITH [id number] 02:11:14* Test Item Value Reference Range Interpretation Comme nts WBC (test code = 1001) 4.1 K/UL 3.5-11.0 RBC (test code = 1002) 4.13 M/UL 3.80-5.40 HEMOGLOBIN (test code = 1003) 13.2 G/DL 11.5-15.5 HEMATOCRIT (test code = 1004) 39.2 % 34.0-45.0 MCV (test code = 1005) 94.9 fL 80.0-99.0 MCH (test code = 1006) 32.0 PG 25.0-33.0 MCHC (test code = 1007) 33.7 G/DL 31.0-36.0 RDW (test code = 1038) 12.9 % 11.5-15.0 NEUTROPHILS (test code = 1008) 43.9 % LYMPHOCYTES (test code = 1010) 47.2 % MONOCYTES (test code = 1011) 7.3 % EOSINOPHILS (test code = 1012) 1.2 % BASOPHILS (test code = 1013) 0.2 % IMMATURE GRANULOCYTES (test code = 1036) 0.2 % NUCLEATED RBCS (test code = 1065) 0.0 /100 WBC'S See_Comment [Automated message] The system which generated this result transmitted reference range: 0.0. The reference range was not used to interpret this result as normal/abnormal. PLATELET COUNT (test code = 1015) 185 K/UL 130-400 ABSOLUTE NEUTROPHILS (test code = 1066) 1.80 K/UL 1.50-7.50 ABSOLUTE LYMPHOCYTES (test code = 1067) 1.94 K/UL 1.00-4.00 ABSOLUTE MONOCYTES (test code = 1068) 0.30 K/UL 0.20-1.00 ABSOLUTE EOSINOPHILS (test code = 1040) 0.05 K/UL 0.00-0.50 ABSOLUTE BASOPHILS (test code = 1069) 0.01 K/UL 0.00-0.20 ABS IMMATURE GRANULOCYTES (test code = 1020) 0.01 K/UL 0.00-0.10 ABS NUCLEATED RBCS (test code = 61210) 0.00 K/UL 0.00-0.11 UNLESS OTHER KEENAN INDICATED, ALL TESTING PERFORMED AT [facility] [address] [place] [address] LOCK TENDER: EMERY PARMAR M.D. CLIA NUMBER [id number] [facility] [place]. 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 May also be positive with M. kansasii, M. szulgai and M. marinum. Not positive with BCG therapy. To establish a diagnosis of active disease, correlate with clinical and radiographic data. Indeterminate: May occur from excessive levels of gamma interferon, heterophil antibodies, anergy or handling issues. Repeat analysis is recommended. Negative: Presumptive negative for active or latent MTB infection. False negatives may occasionally be seen with impaired immune function or testing too early after exposure. ____ GAMMA INTERFERON RESULTS TB1-NIL (test code = 11344) 0.005 IU/ML <0.35 TB2-NIL (test code = 69187) 0.020 IU/ML <0.35 MITOGEN-NIL (test code = 86482) 0.347 IU/ML NIL (test code = 06412) 0.34667 IU/ML UNLESS OTHERWISE INDICATED, ALL TESTING PERFORMED AT [facility] [address] [place] [address] LOCK TENDER: EMERY PARMAR M.D. CLIA NUMBER [id number] [place] [id number] HEPATITIS B E [id number] 10:39:39* Test Item Value Reference Range Interpretation Comme nts HEPATITIS B E ANTIBODY (test code = 2733) NEGATIVE NEGATIVE TESTING PERFORME D AT [place] [address] CAP NO. [id number] CLIA NO. [id number] HEPATITIS B SURFACE [id number] 06:28:22* Test Item Value Reference Range Interpretation Comme nts HEPATITIS B SURFACE AB (test code = 2737) NON-REACTIVE NON-REACTIVE HEPATITIS B SURF [id number] 06:28:22* Test Item Value Reference Range Interpretation Comme nts HEPATITIS B SURF AG (test co de = 2739) NON-REACTIVE NON-REACTIVE HEPATITIS C [id number] 06:28:22* Test Item Value Reference Range Interpretation Comme nts HEPATITIS C ANTIBODY (test c ode = 4675) NON-REACTIVE NON-REACTIVE HEPATIC FUNCTION [id number] 05:14:01* Test Item Value Reference Range Interpretation Comme nts PROTEIN, TOTAL (test code = 9) 7.6 G/DL 6.1-8.3 ALBUMIN (test code = 220) 5.0 G/DL 3.5-5.2 BILIRUBIN, TOTAL (test code = 2206) 0.3 MG/DL <=1.2 BILIRUBIN, DIRECT (test code = 2021) 0.1 MG/DL 0.0-0.3 ALKALINE PHOSPHATASE (test c ode = 2203) 164 U/L 40-130 H AST (test code = 221) 24 U/L 9-40 ALT (test code = 221) 21 U/L 5-40 [id number] 05:14:01* Test Item Value Reference Range Interpretation Comme nts CREATININE (test code = 2213) 0.44 MG/DL 0.60-1.30 L eGFR (2020 CKD-EPI) (test code = 43021) 117 ML/MIN/1.73 >60 CBC W/AUTO DIFF WITH [id number] 01:54:31* Test Item Value Reference Range Interpretation Comme nts WBC (test code = 1001) 5.2 K/UL 3.5-11.0 RBC (test code = 1002) 4.29 M/UL 3.80-5.40 HEMOGLOBIN (test code = 1003) 14.0 G/DL 11.5-15.5 HEMATOCRIT (test code = 1004) 40.1 % 34.0-45.0 MCV (test code = 1005) 93.5 fL 80.0-99.0 MCH (test code = 1006) 32.6 PG 25.0-33.0 MCHC (test code = 1007) 34.9 G/DL 31.0-36.0 RDW (test code = 1038) 12.4 % 11.5-15.0 NEUTROPHILS (test code = 1008) 57.8 % LYMPHOCYTES (test code = 1010) 33.8 % MONOCYTES (test code = 1011) 6.6 % EOSINOPHILS (test code = 1012) 1.0 % BASOPHILS (test code = 1013) 0.4 % IMMATURE GRANULOCYTES (test code = 1036) 0.4 % NUCLEATED RBCS (test code = 1065) 0.0 /100 WBC'S See_Comment [Automated FilesXa ge] The system which generated this result transmitted reference range: 0.0. The reference range was not used to interpret this result as normal/abnormal. PLATELET COUNT (test code = 1015) 197 K/UL 130-400 ABSOLUTE NEUTROPHILS (test code = 1066) 3.00 K/UL 1.50-7.50 ABSOLUTE LYMPHOCYTES (test code = 1067) 1.75 K/UL 1.00-4.00 ABSOLUTE MONOCYTES (test code = 1068) 0.34 K/UL 0.20-1.00 ABSOLUTE EOSINOPHILS (test code = 1040) 0.05 K/UL 0.00-0.50 ABSOLUTE BASOPHILS (test code = 1069) 0.02 K/UL 0.00-0.20 ABS IMMATURE GRANULOCYTES (test code = 1020) 0.02 K/UL 0.00-0.10 ABS NUCLEATED RBCS (test code = 66095) 0.00 K/UL 0.00-0.11 LIPID [id number] 03:22:56* Test Item Value Reference Range Interpretation Comme nts CHOLESTEROL (test code = 2210) 266 MG/DL <200 H TRIGLYCERIDES (test code = 2232) 228 MG/DL <150 H HDL CHOLESTEROL (test code = 2220) 88 MG/DL >39 CALC LDL CHOL (test code = 2237) 141 MG/DL <100 H NOTE: CALCULATED LDL IS BASED ON DANYA-GRIFFITHS METHOD WHICHINCLUDES ADJUSTABLE TRIGLYCERIDE:VLDL CHOLESTEROL RATIO.THIS FACTOR VARIES BY MEASURED TRIGLYCERIDE AND NON-HDLCHOLESTEROL CONCENTRATIONS WITH INCREASED CALCULATED LDL SEENIN HIGHER TRIGLYCERIDE OR LOWER NON-HDL SPECIMENS. FOR MOREINFORMATION, SEE CLIENT ANNOUNCEMENT AT [email or web address] [email or web address] RATIO LDL/HDL (test code = 2238) 1.60 RATIO <3.22 COMPREHENSIVE METABOLIC [id number] 03:22:56* Test Item Value Reference Range Interpretation Comme nts GLUCOSE (test code = 2217) 120 MG/DL 70-99 H BUN (test code = 2208) 11 MG/DL 6-20 CREATININE (test code = 2214) 0.43 MG/DL 0.60-1.30 L eGFR (2020 CKD-EPI) (test code = 30814) 118 ML/MIN/1.73 >60 CALC BUN/CREAT (test code = 2235) 26 RATIO 6-28 SODIUM (test code = 2230) 134 MEQ/L 133-146 POTASSIUM (test code = 8) 3.7 MEQ/L 3.5-5.4 CHLORIDE (test code = 5) 94 MEQ/L 95-107 L CARBON DIOXIDE (test code = 6) 26 MEQ/L 19-31 CALCIUM (test code = 2208) 9.9 MG/DL 8.5-10.5 PROTEIN, TOTAL (test code = 2228) 7.7 G/DL 6.1-8.3 ALBUMIN (test code = 2200) 5.0 G/DL 3.5-5.2 CALC GLOBULIN (test code = 0) 2.7 G/DL 1.9-3.7 CALC A/G RATIO (test code = 2233) 1.9 RATIO 1.0-2.6 BILIRUBIN, TOTAL (test code = 2206) 0.3 MG/DL <=1.2 ALKALINE PHOSPHATASE (test code = 2203) 155 U/L 40-128 H AST (test code = 2218) 21 U/L 9-40 ALT (test code = 2219) 21 U/L 5-40 UNLESS OTHERWISE INDICATED, ALL TESTING PERFORMED AT [facility] [address] [place] [address] LOCK TENDER: EMERY PARMAR M.D. IA NUMBER [id number] [facility] [place]. [id number] HEMOGLOBIN [id number] 03:11:27* Test Item Value Reference Range Interpretation Comme nts HEMOGLOBIN A1c (test code = 78528) 5.9 % 4.2-5.6 H [employer] GUIDELINES FOR HGB A1C: PREDIABETES/INCREASED RISK . . . . . . . 5.7-6.4% DIAGNOSIS OF DIABETES . . . . . . . . . >=6.5% WITH CONFIRMATION OR APPROPRIATE SYMPTOMS NOTE: ASSAY MAY BE AFFECTED BY HEMOGLOBINOPATHIES (SICKLE CELL ANEMIA, S-C DISEASE, OTHERS) OR ARTIFICIALLY LOWERED BY DECREASED RED CELL SURVIVAL (HEMOLYTIC ANEMIAS, BLOOD LOSS, ETC.). CONSIDER ALTERNATE TESTING OR LABORATORY CONSULTATION. LIPID [id number] 00:00:00* Test Item Value Reference Range Interpretation Comme nts CHOLESTEROL (test code = 2210) 266 MG/DL TRIGLYCERIDES (test code = 2232) 228 MG/DL HDL CHOLESTEROL (test code = 2220) 88 MG/DL CALC LDL CHOL (test code = 2237) 141 MG/DL RISK RATIO LDL/HDL (test cod e = 2238) 1.60 RATIO Ricardo AraujoCOMPREHENSIVE METABOLIC [id number] 00:00:00* Test Item Value Reference Range Interpretation Comme nts GLUCOSE (test code = 2217) 120 MG/DL BUN (test code = 2208) 11 MG/DL CREATININE (test code = 2214) 0.43 MG/DL eGFR (2020 CKD-EPI) (test code = 66714) 118 ML/MIN/1.73 CALC BUN/CREAT (test code = 2235) 26 RATIO SODIUM (test code = 2231) 134 MEQ/L POTASSIUM (test code = 2228) 3.7 MEQ/L CHLORIDE (test code = 2215) 94 MEQ/L CARBON DIOXIDE (test code = 2206) 26 MEQ/L CALCIUM (test code = 2209) 9.9 MG/DL PROTEIN, TOTAL (test code = 2229) 7.7 G/DL ALBUMIN (test code = 2201) 5.0 G/DL CALC GLOBULIN (test code = 2240) 2.7 G/DL CALC A/G RATIO (test code = 2234) 1.9 RATIO BILIRUBIN, TOTAL (test code = 2207) 0.3 MG/DL ALKALINE PHOSPHATASE (test code = 2204) 155 U/L AST (test code = 2218) 21 U/L ALT (test code = 2219) 21 U/L Ricardo AraujoHEMOGLOBIN [id number] 00:00:00* Test Item Value Reference Range Interpretation Comme nts HEMOGLOBIN A1c (test code = 65279) 5.9 % Ricardo AraujoLIPID [id number] 00:00:00* Test Item Value Reference Range Interpretation Comme nts CHOLESTEROL (test code = 2210) 243 MG/DL TRIGLYCERIDES (test code = 2232) 384 MG/DL HDL CHOLESTEROL (test code = 2220) 73 MG/DL CALC LDL CHOL (test code = 2237) 115 MG/DL RISK RATIO LDL/HDL (test cod e = 2238) 1.58 RATIO COMPREHENSIVE METABOLIC [id number] 00:00:00* Test Item Value Reference Range Interpretation Comme nts GLUCOSE (test code = 2217) 149 MG/DL BUN (test code = 2208) 16 MG/DL CREATININE (test code = 2214) 0.58 MG/DL eGFR AMER. (test cod e = 15605) 126 ML/MIN/1.73 eGFR NON- AMER. (test code = 21179) 109 ML/MIN/1.73 CALC BUN/CREAT (test code = 2235) 28 RATIO SODIUM (test code = 2231) 145 MEQ/L POTASSIUM (test code = 2228) 4.2 MEQ/L CHLORIDE (test code = 2215) 104 MEQ/L CARBON DIOXIDE (test code = 2206) 27 MEQ/L CALCIUM (test code = 2209) 9.5 MG/DL PROTEIN, TOTAL (test code = 2229) 7.5 G/DL ALBUMIN (test code = 2201) 4.8 G/DL CALC GLOBULIN (test code = 2240) 2.7 G/DL CALC A/G RATIO (test code = 2234) 1.8 RATIO BILIRUBIN, TOTAL (test code = 2207) <0.2 MG/DL ALKALINE PHOSPHATASE (test code = 2204) 153 U/L AST (test code = 2218) 21 U/L ALT (test code = 2219) 27 U/L LIPID [id number] 00:00:00* Test Item Value Reference Range Interpretation Comme nts CHOLESTEROL (test code = 2210) 243 MG/DL TRIGLYCERIDES (test code = 2232) 384 MG/DL HDL CHOLESTEROL (test code = 2220) 73 MG/DL CALC LDL CHOL (test code = 2237) 115 MG/DL RISK RATIO LDL/HDL (test cod e = 2238) 1.58 RATIO Ricardo F AustinCOMPREHENSIVE METABOLIC [id number] 00:00:00* Test Item Value Reference Range Interpretation Comme nts GLUCOSE (test code = 2217) 149 MG/DL BUN (test code = 2208) 16 MG/DL CREATININE (test code = 2214) 0.58 MG/DL eGFR AMER. (test cod e = 16961) 126 ML/MIN/1.73 eGFR NON- AMER. (test code = 53073) 109 ML/MIN/1.73 CALC BUN/CREAT (test code = 2235) 28 RATIO SODIUM (test code = 2231) 145 MEQ/L POTASSIUM (test code = 2228) 4.2 MEQ/L CHLORIDE (test code = 2215) 104 MEQ/L CARBON DIOXIDE (test code = 2206) 27 MEQ/L CALCIUM (test code = 2209) 9.5 MG/DL PROTEIN, TOTAL (test code = 2229) 7.5 G/DL ALBUMIN (test code = 2201) 4.8 G/DL CALC GLOBULIN (test code = 2240) 2.7 G/DL CALC A/G RATIO (test code = 2234) 1.8 RATIO BILIRUBIN, TOTAL (test code = 2207) <0.2 MG/DL ALKALINE PHOSPHATASE (test code = 220) 153 U/L AST (test code = 2218) 21 U/L ALT (test code = 2219) 27 U/L Ricardo AraujoHEMOGLOBIN [id number] 00:00:00* Test Item Value Reference Range Interpretation Comme [facility] HEMOGLOBIN A1c (test code = 15923) 6.1 % Ricardo AraujoCBC W/AUTO [id number] 00:00:00* Test Item Value Reference Range Interpretation Comme nts WBC (test code = 1001) 4.8 K/UL RBC (test code = 1002) 4.21 M/UL HEMOGLOBIN (test code = 1003) 13.6 G/DL HEMATOCRIT (test code = 1004) 39.4 % MCV (test code = 1005) 93.6 fL MCH (test code = 1006) 32.3 PG MCHC (test code = 1007) 34.5 G/DL RDW (test code = 1038) 12.3 % NEUTROPHILS (test code = 1008) 46.9 % LYMPHOCYTES (test code = 1010) 39.4 % MONOCYTES (test code = 1011) 10.2 % EOSINOPHILS (test code = 1012) 0.8 % BASOPHILS (test code = 1013) 0.8 % IMMATURE GRANULOCYTES (test code = 1036) 1.9 % NUCLEATED RBCS (test code = 1065) 0.0 /100WBC'S PLATELET COUNT (test code = 1015) 156 K/UL ABSOLUTE NEUTROPHILS (test c ode = 1066) 2.26 K/UL ABSOLUTE LYMPHOCYTES (test c ode = 1067) 1.90 K/UL ABSOLUTE MONOCYTES (test cod e = 1068) 0.49 K/UL ABSOLUTE EOSINOPHILS (test c ode = 1040) 0.04 K/UL ABSOLUTE BASOPHILS (test cod e = 1069) 0.04 K/UL ABS IMMATURE GRANULOCYTES (t est code = 1020) 0.09 K/UL ABS NUCLEATED RBCS (test cod e = 12502) 0.00 K/UL HEMOGLOBIN [id number] 00:00:00* Test Item Value Reference Range Interpretation Comme nts HEMOGLOBIN A1c (test code = 28756) 6.1 % CBC W/AUTO [id number] 00:00:00* Test Item Value Reference Range Interpretation Comme nts WBC (test code = 1001) 4.8 K/UL RBC (test code = 1002) 4.21 M/UL HEMOGLOBIN (test code = 1003) 13.6 G/DL HEMATOCRIT (test code = 1004) 39.4 % MCV (test code = 1005) 93.6 fL MCH (test code = 1006) 32.3 PG MCHC (test code = 1007) 34.5 G/DL RDW (test code = 1038) 12.3 % NEUTROPHILS (test code = 1008) 46.9 % LYMPHOCYTES (test code = 1010) 39.4 % MONOCYTES (test code = 1011) 10.2 % EOSINOPHILS (test code = 1012) 0.8 % BASOPHILS (test code = 1013) 0.8 % IMMATURE GRANULOCYTES (test code = 1036) 1.9 % NUCLEATED RBCS (test code = 1065) 0.0 /100WBC'S PLATELET COUNT (test code = 1015) 156 K/UL ABSOLUTE NEUTROPHILS (test c ode = 1066) 2.26 K/UL ABSOLUTE LYMPHOCYTES (test c ode = 1067) 1.90 K/UL ABSOLUTE MONOCYTES (test cod e = 1068) 0.49 K/UL ABSOLUTE EOSINOPHILS (test c ode = 1040) 0.04 K/UL ABSOLUTE BASOPHILS (test cod e = 1069) 0.04 K/UL ABS IMMATURE GRANULOCYTES (t est code = 1020) 0.09 K/UL ABS NUCLEATED RBCS (test cod e = 35382) 0.00 K/UL Ricardo Mason-CoV-2 (COVID-19) by RT-PCR (HIGH RISK)2020-06-10 00:00:00* Test Item Value Reference Range Interpretation Comme nts SARS-CoV-2 INTERPRETATION (t est code = 72416) POSITIVE SOURCE (test code = 39753) NOT SPECIFIED SARS-CoV-2 (COVID-19) by RT-PCR (HIGH RISK)2020-06-10 00:00:00* Test Item Value Reference Range Interpretation Comme nts SARS-CoV-2 INTERPRETATION (t est code = 44425) POSITIVE SOURCE (test code = 67728) NOT SPECIFIED Ricardo AraujoHEMOGLOBIN [id number] 00:00:00* Test Item Value Reference Range Interpretation Comme nts HEMOGLOBIN A1c (test code = 71402) 5.7 % Ricardo AraujoMICROALBUMIN/CREATININE, RANDOM AND [id number] 00:00:00* Test Item Value Reference Range Interpretation Comme nts CREATININE, URINE, CONC. (te st code = 2072) 60.9 MG/DL ALBUMIN, URINE, RANDOM (test code = 54666) 0.4 MG/DL CALC ALBUMIN/CREAT, RND (rebecca t code = 69684) 7 MG/G HEMOGLOBIN [id number] 00:00:00* Test Item Value Reference Range Interpretation Comme nts HEMOGLOBIN A1c (test code = 83144) 5.7 % LIPID [id number] 00:00:00* Test Item Value Reference Range Interpretation Comme nts CHOLESTEROL (test code = 2210) 201 MG/DL TRIGLYCERIDES (test code = 2232) 190 MG/DL HDL CHOLESTEROL (test code = 2220) 90 MG/DL CALC LDL CHOL (test code = 2237) 83 MG/DL RISK RATIO LDL/HDL (test cod e = 2238) 0.92 RATIO COMPREHENSIVE METABOLIC [id number] 00:00:00* Test Item Value Reference Range Interpretation Comme nts GLUCOSE (test code = 2217) 162 MG/DL BUN (test code = 2208) 16 MG/DL CREATININE (test code = 2214) 0.91 MG/DL eGFR AMER. (test cod e = 76777) 87 ML/MIN/1.73 eGFR NON- AMER. (test code = 47809) 75 ML/MIN/1.73 CALC BUN/CREAT (test code = 2235) 18 RATIO SODIUM (test code = 2231) 135 MEQ/L POTASSIUM (test code = 2228) 3.7 MEQ/L CHLORIDE (test code = 2215) 95 MEQ/L CARBON DIOXIDE (test code = 2206) 27 MEQ/L CALCIUM (test code = 2209) 9.7 MG/DL PROTEIN, TOTAL (test code = 2229) 7.2 G/DL ALBUMIN (test code = 2201) 4.7 G/DL CALC GLOBULIN (test code = 2240) 2.5 G/DL CALC A/G RATIO (test code = 2234) 1.9 RATIO BILIRUBIN, TOTAL (test code = 2207) <0.2 MG/DL ALKALINE PHOSPHATASE (test code = 2204) 106 U/L AST (test code = 2218) 24 U/L ALT (test code = 2219) 25 U/L [id number] 00:00:00* Test Item Value Reference Range Interpretation Comme nts TSH, THIRD GENERATION (test code = 2821) 2.010 UIU/ML LIPID [id number] 00:00:00* Test Item Value Reference Range Interpretation Comme nts CHOLESTEROL (test code = 2210) 201 MG/DL TRIGLYCERIDES (test code = 2232) 190 MG/DL HDL CHOLESTEROL (test code = 2220) 90 MG/DL CALC LDL CHOL (test code = 2237) 83 MG/DL RISK RATIO LDL/HDL (test cod e = 2238) 0.92 RATIO Ricardo F AustinCOMPREHENSIVE METABOLIC [id number] 00:00:00* Test Item Value Reference Range Interpretation Comme nts GLUCOSE (test code = 2217) 162 MG/DL BUN (test code = 2208) 16 MG/DL CREATININE (test code = 2214) 0.91 MG/DL eGFR AMER. (test cod e = 55333) 87 ML/MIN/1.73 eGFR NON- AMER. (test code = 38916) 75 ML/MIN/1.73 CALC BUN/CREAT (test code = 2235) 18 RATIO SODIUM (test code = 2231) 135 MEQ/L POTASSIUM (test code = 2228) 3.7 MEQ/L CHLORIDE (test code = 2215) 95 MEQ/L CARBON DIOXIDE (test code = 2206) 27 MEQ/L CALCIUM (test code = 2209) 9.7 MG/DL PROTEIN, TOTAL (test code = 2229) 7.2 G/DL ALBUMIN (test code = 2201) 4.7 G/DL CALC GLOBULIN (test code = 2240) 2.5 G/DL CALC A/G RATIO (test code = 2234) 1.9 RATIO BILIRUBIN, TOTAL (test code = 2207) <0.2 MG/DL ALKALINE PHOSPHATASE (test code = 2204) 106 U/L AST (test code = 2218) 24 U/L ALT (test code = 2219) 25 U/L Ricardo [id number] 00:00:00* Test Item Value Reference Range Interpretation Comme nts TSH, THIRD GENERATION (test code = 2821) 2.010 UIU/ML Ricardo AraujoMICROALBUMIN/CREATININE, RANDOM AND [id number] 00:00:00* Test Item Value Reference Range Interpretation Comme nts CREATININE, URINE, CONC. (te st code = 2072) 60.9 MG/DL ALBUMIN, URINE, RANDOM (test code = 60042) 0.4 MG/DL CALC ALBUMIN/CREAT, RND (reebcca t code = 47500) 7 MG/G Ricardo AraujoCOMPREHENSIVE METABOLIC [id number] 00:00:00* Test Item Value Reference Range Interpretation Comme nts GLUCOSE (test code = 2217) 95 MG/DL BUN (test code = 2208) 9 MG/DL CREATININE (test code = 2214) 0.39 MG/DL eGFR AMER. (test cod e = 91158) 146 ML/MIN/1.73 eGFR NON- AMER. (test code = 91575) 126 ML/MIN/1.73 CALC BUN/CREAT (test code = 2235) 23 RATIO SODIUM (test code = 2231) 137 MEQ/L POTASSIUM (test code = 2228) 4.0 MEQ/L CHLORIDE (test code = 2215) 93 MEQ/L CARBON DIOXIDE (test code = 2206) 29 MEQ/L CALCIUM (test code = 2209) 9.6 MG/DL PROTEIN, TOTAL (test code = 2229) 7.5 G/DL ALBUMIN (test code = 2201) 4.8 G/DL CALC GLOBULIN (test code = 2240) 2.7 G/DL CALC A/G RATIO (test code = 2234) 1.8 RATIO BILIRUBIN, TOTAL (test code = 2207) 0.2 MG/DL ALKALINE PHOSPHATASE (test code = 2204) 127 U/L AST (test code = 2218) 24 U/L ALT (test code = 2219) 26 U/L Ricardo Isaacs AustinLIPID [id number] 00:00:00* Test Item Value Reference Range Interpretation Comme nts CHOLESTEROL (test code = 2210) 173 MG/DL TRIGLYCERIDES (test code = 2232) 191 MG/DL HDL CHOLESTEROL (test code = 2220) 70 MG/DL CALC LDL CHOL (test code = 2237) 65 MG/DL RISK RATIO LDL/HDL (test cod e = 2238) 0.93 RATIO COMPREHENSIVE METABOLIC [id number] 00:00:00* Test Item Value Reference Range Interpretation Comme nts GLUCOSE (test code = 2217) 95 MG/DL BUN (test code = 2208) 9 MG/DL CREATININE (test code = 2214) 0.39 MG/DL eGFR AMER. (test cod e = 42171) 146 ML/MIN/1.73 eGFR NON- AMER. (test code = 97646) 126 ML/MIN/1.73 CALC BUN/CREAT (test code = 2235) 23 RATIO SODIUM (test code = 2231) 137 MEQ/L POTASSIUM (test code = 2228) 4.0 MEQ/L CHLORIDE (test code = 2215) 93 MEQ/L CARBON DIOXIDE (test code = 2206) 29 MEQ/L CALCIUM (test code = 2209) 9.6 MG/DL PROTEIN, TOTAL (test code = 2229) 7.5 G/DL ALBUMIN (test code = 2201) 4.8 G/DL CALC GLOBULIN (test code = 2240) 2.7 G/DL CALC A/G RATIO (test code = 2234) 1.8 RATIO BILIRUBIN, TOTAL (test code = 2207) 0.2 MG/DL ALKALINE PHOSPHATASE (test code = 2204) 127 U/L AST (test code = 2218) 24 U/L ALT (test code = 2219) 26 U/L HEMOGLOBIN [id number] 00:00:00* Test Item Value Reference Range Interpretation Comme nts HEMOGLOBIN A1c (test code = 97626) 6.4 % MICROALBUMIN/CREATININE, RANDOM AND [id number] 00:00:00* Test Item Value Reference Range Interpretation Comme nts CREATININE, URINE, CONC. (te st code = 2072) 37.2 MG/DL ALBUMIN, URINE, RANDOM (test code = 08932) 0.3 MG/DL CALC ALBUMIN/CREAT, RND (rebecca t code = 76414) 8 MG/G HEMOGLOBIN [id number] 00:00:00* Test Item Value Reference Range Interpretation Comme nts HEMOGLOBIN A1c (test code = 63516) 6.4 % Ricardo Isaacs AustinMICROALBUMIN/CREATININE, RANDOM AND [id number] 00:00:00* Test Item Value Reference Range Interpretation Comme nts CREATININE, URINE, CONC. (te st code = 2072) 37.2 MG/DL ALBUMIN, URINE, RANDOM (test code = 53180) 0.3 MG/DL CALC ALBUMIN/CREAT, RND (rebecca t code = 98142) 8 MG/G Ricardo Isaacs AustinLIPID [id number] 00:00:00* Test Item Value Reference Range Interpretation Comme nts CHOLESTEROL (test code = 2210) 173 MG/DL TRIGLYCERIDES (test code = 2232) 191 MG/DL HDL CHOLESTEROL (test code = 2220) 70 MG/DL CALC LDL CHOL (test code = 2237) 65 MG/DL RISK RATIO LDL/HDL (test cod e = 2238) 0.93 RATIO Ricardo AraujoLIPID [id number] 00:00:00* Test Item Value Reference Range Interpretation Comme nts CHOLESTEROL (test code = 2210) 220 MG/DL TRIGLYCERIDES (test code = 2232) 199 MG/DL HDL CHOLESTEROL (test code = 2220) 83 MG/DL CALC LDL CHOL (test code = 2237) 97 MG/DL RISK RATIO LDL/HDL (test cod e = 2238) 1.17 RATIO Ricardo AraujoCOMPREHENSIVE METABOLIC [id number] 00:00:00* Test Item Value Reference Range Interpretation Comme nts GLUCOSE (test code = 2217) 136 MG/DL BUN (test code = 2208) 10 MG/DL CREATININE (test code = 2214) 0.48 MG/DL eGFR AMER. (test cod e = 12072) 136 ML/MIN/1.73 eGFR NON- AMER. (test code = 89546) 118 ML/MIN/1.73 CALC BUN/CREAT (test code = 2235) 21 RATIO SODIUM (test code = 2231) 139 MEQ/L POTASSIUM (test code = 2228) 3.8 MEQ/L CHLORIDE (test code = 2215) 98 MEQ/L CARBON DIOXIDE (test code = 2206) 28 MEQ/L CALCIUM (test code = 2209) 9.4 MG/DL PROTEIN, TOTAL (test code = 2229) 7.2 G/DL ALBUMIN (test code = 2201) 4.4 G/DL CALC GLOBULIN (test code = 2240) 2.8 G/DL CALC A/G RATIO (test code = 2234) 1.6 RATIO BILIRUBIN, TOTAL (test code = 220) 0.3 MG/DL ALKALINE PHOSPHATASE (test code = 220) 135 U/L AST (test code = 221) 26 U/L ALT (test code = 2219) 25 U/L Ricardo Isaacs AustinHEMOGLOBIN [id number] 00:00:00* Test Item Value Reference Range Interpretation Comme nts HEMOGLOBIN A1c (test code = 95533) 6.0 % LIPID [id number] 00:00:00* Test Item Value Reference Range Interpretation Comme nts CHOLESTEROL (test code = 2210) 220 MG/DL TRIGLYCERIDES (test code = 2232) 199 MG/DL HDL CHOLESTEROL (test code = 2220) 83 MG/DL CALC LDL CHOL (test code = 2237) 97 MG/DL RISK RATIO LDL/HDL (test cod e = 2238) 1.17 RATIO COMPREHENSIVE METABOLIC [id number] 00:00:00* Test Item Value Reference Range Interpretation Comme nts GLUCOSE (test code = 2217) 136 MG/DL BUN (test code = 2208) 10 MG/DL CREATININE (test code = 2214) 0.48 MG/DL eGFR AMER. (test cod e = 68022) 136 ML/MIN/1.73 eGFR NON- AMER. (test code = 33565) 118 ML/MIN/1.73 CALC BUN/CREAT (test code = 2235) 21 RATIO SODIUM (test code = 2231) 139 MEQ/L POTASSIUM (test code = 2228) 3.8 MEQ/L CHLORIDE (test code = 2215) 98 MEQ/L CARBON DIOXIDE (test code = 2206) 28 MEQ/L CALCIUM (test code = 220) 9.4 MG/DL PROTEIN, TOTAL (test code = 2229) 7.2 G/DL ALBUMIN (test code = 2201) 4.4 G/DL CALC GLOBULIN (test code = 2240) 2.8 G/DL CALC A/G RATIO (test code = 2234) 1.6 RATIO BILIRUBIN, TOTAL (test code = 2207) 0.3 MG/DL ALKALINE PHOSPHATASE (test code = 220) 135 U/L AST (test code = 2218) 26 U/L ALT (test code = 2219) 25 U/L HEMOGLOBIN [id number] 00:00:00* Test Item Value Reference Range Interpretation Comme nts HEMOGLOBIN A1c (test code = 89594) 6.0 % Ricardo Isaacs FreedomLIPID [id number] 00:00:00* Test Item Value Reference Range Interpretation Comme nts CHOLESTEROL (test code = 2210) 226 MG/DL TRIGLYCERIDES (test code = 2232) 135 MG/DL HDL CHOLESTEROL (test code = 2220) 90 MG/DL CALC LDL CHOL (test code = 2237) 109 MG/DL RISK RATIO LDL/HDL (test cod e = 2238) 1.21 RATIO Ricardo AraujoCOMPREHENSIVE METABOLIC [id number] 00:00:00* Test Item Value Reference Range Interpretation Comme nts GLUCOSE (test code = 7) 122 MG/DL BUN (test code = 2207) 15 MG/DL CREATININE (test code = 2214) 0.42 MG/DL eGFR AMER. (test cod e = 28298) 144 ML/MIN/1.73 eGFR NON- AMER. (test code = 43637) 125 ML/MIN/1.73 CALC BUN/CREAT (test code = 2235) 36 RATIO SODIUM (test code = 2231) 143 MEQ/L POTASSIUM (test code = 2228) 4.2 MEQ/L CHLORIDE (test code = 2215) 98 MEQ/L CARBON DIOXIDE (test code = 2206) 20 MEQ/L CALCIUM (test code = 2209) 9.1 MG/DL PROTEIN, TOTAL (test code = 2229) 7.2 G/DL ALBUMIN (test code = 2201) 4.3 G/DL CALC GLOBULIN (test code = 2240) 2.9 G/DL CALC A/G RATIO (test code = 2234) 1.5 RATIO BILIRUBIN, TOTAL (test code = 2207) 0.2 MG/DL ALKALINE PHOSPHATASE (test code = 2204) 142 U/L AST (test code = 2218) 23 U/L ALT (test code = 2219) 20 U/L LIPID [id number] 00:00:00* Test Item Value Reference Range Interpretation Comme nts CHOLESTEROL (test code = 2210) 226 MG/DL TRIGLYCERIDES (test code = 2232) 135 MG/DL HDL CHOLESTEROL (test code = 2220) 90 MG/DL CALC LDL CHOL (test code = 2237) 109 MG/DL RISK RATIO LDL/HDL (test cod e = 2238) 1.21 RATIO [id number] 00:00:00* Test Item Value Reference Range Interpretation Comme nts TSH (test code = 2821) 2.870 UIU/ML [id number] 00:00:00* Test Item Value Reference Range Interpretation Comme nts TSH (test code = 2821) 2.870 UIU/ML Ricardojose AraujoCOMPREHENSIVE METABOLIC [id number] 00:00:00* Test Item Value Reference Range Interpretation Comme nts GLUCOSE (test code = 2217) 122 MG/DL BUN (test code = 2208) 15 MG/DL CREATININE (test code = 2214) 0.42 MG/DL eGFR AMER. (test cod e = 49472) 144 ML/MIN/1.73 eGFR NON- AMER. (test code = 30027) 125 ML/MIN/1.73 CALC BUN/CREAT (test code = 2235) 36 RATIO SODIUM (test code = 2231) 143 MEQ/L POTASSIUM (test code = 2228) 4.2 MEQ/L CHLORIDE (test code = 2215) 98 MEQ/L CARBON DIOXIDE (test code = 2206) 20 MEQ/L CALCIUM (test code = 2209) 9.1 MG/DL PROTEIN, TOTAL (test code = 2229) 7.2 G/DL ALBUMIN (test code = 2201) 4.3 G/DL CALC GLOBULIN (test code = 2240) 2.9 G/DL CALC A/G RATIO (test code = 2234) 1.5 RATIO BILIRUBIN, TOTAL (test code = 2207) 0.2 MG/DL ALKALINE PHOSPHATASE (test code = 2204) 142 U/L AST (test code = 2218) 23 U/L ALT (test code = 2219) 20 U/L Ricardo Miles W/AUTO [id number] 00:00:00* Test Item Value Reference Range Interpretation Comme nts WBC (test code = 1001) 5.4 K/UL RBC (test code = 1002) 4.13 M/UL HEMOGLOBIN (test code = 1003) 13.0 G/DL HEMATOCRIT (test code = 1004) 40.6 % MCV (test code = 1005) 98.3 fL MCH (test code = 1006) 31.5 PG MCHC (test code = 1007) 32.0 G/DL RDW (test code = 1038) 12.7 % NEUTROPHILS (test code = 1008) 49.9 % LYMPHOCYTES (test code = 1010) 44.0 % MONOCYTES (test code = 1011) 4.6 % EOSINOPHILS (test code = 1012) 1.1 % BASOPHILS (test code = 1013) 0.4 % PLATELET COUNT (test code = 1015) 203 K/UL COMMENTS (test code = 1016) (NOTE) Ricardo AraujoROBERTS CHAP[place] W/AUTO [id number] 00:00:00* Test Item Value Reference Range Interpretation Comme nts WBC (test code = 1001) 5.4 K/UL RBC (test code = 1002) 4.13 M/UL HEMOGLOBIN (test code = 1003) 13.0 G/DL HEMATOCRIT (test code = 1004) 40.6 % MCV (test code = 1005) 98.3 fL MCH (test code = 1006) 31.5 PG MCHC (test code = 1007) 32.0 G/DL RDW (test code = 1038) 12.7 % NEUTROPHILS (test code = 1008) 49.9 % LYMPHOCYTES (test code = 1010) 44.0 % MONOCYTES (test code = 1011) 4.6 % EOSINOPHILS (test code = 1012) 1.1 % BASOPHILS (test code = 1013) 0.4 % PLATELET COUNT (test code = 1015) 203 K/UL COMMENTS (test code = 1016) (NOTE) LIPID [id number] 00:00:00* Test Item Value Reference Range Interpretation Comme nts CHOLESTEROL (test code = 2210) 230 MG/DL TRIGLYCERIDES (test code = 2232) 402 MG/DL HDL CHOLESTEROL (test code = 2220) 77 MG/DL CALC LDL CHOL (test code = 2237) NOTE MG/DL Ricardo AraujoCBC W/AUTO [id number] 00:00:00* Test Item Value Reference Range Interpretation Comme nts WBC (test code = 1001) 5.1 K/UL RBC (test code = 1002) 4.00 M/UL HEMOGLOBIN (test code = 1003) 12.9 G/DL HEMATOCRIT (test code = 1004) 37.8 % MCV (test code = 1005) 94.5 fL MCH (test code = 1006) 32.3 PG MCHC (test code = 1007) 34.1 G/DL RDW (test code = 1038) 12.5 % NEUTROPHILS (test code = 1008) 44.7 % LYMPHOCYTES (test code = 1010) 44.6 % MONOCYTES (test code = 1011) 8.7 % EOSINOPHILS (test code = 1012) 1.2 % BASOPHILS (test code = 1013) 0.8 % PLATELET COUNT (test code = 1015) 175 K/UL Ricardo AraujoCOMPREHENSIVE METABOLIC [id number] 00:00:00* Test Item Value Reference Range Interpretation Comme nts GLUCOSE (test code = 2217) 142 MG/DL BUN (test code = 2208) 11 MG/DL CREATININE (test code = 2214) 0.50 MG/DL eGFR AMER. (test cod e = 68364) 136 ML/MIN/1.73 eGFR NON- AMER. (test code = 41711) 118 ML/MIN/1.73 CALC BUN/CREAT (test code = 2235) 22 RATIO SODIUM (test code = 2231) 141 MEQ/L POTASSIUM (test code = 2228) 4.0 MEQ/L CHLORIDE (test code = 2215) 99 MEQ/L CARBON DIOXIDE (test code = 2206) 24 MEQ/L CALCIUM (test code = 2209) 9.0 MG/DL PROTEIN, TOTAL (test code = 2229) 7.0 G/DL ALBUMIN (test code = 2201) 4.3 G/DL CALC GLOBULIN (test code = 2240) 2.7 G/DL CALC A/G RATIO (test code = 2234) 1.6 RATIO BILIRUBIN, TOTAL (test code = 2207) 0.1 MG/DL ALKALINE PHOSPHATASE (test code = 2204) 121 U/L AST (test code = 2218) 27 U/L ALT (test code = 2219) 20 U/L LIPID [id number] 00:00:00* Test Item Value Reference Range Interpretation Comme nts CHOLESTEROL (test code = 2210) 230 MG/DL TRIGLYCERIDES (test code = 2232) 402 MG/DL HDL CHOLESTEROL (test code = 2220) 77 MG/DL CALC LDL CHOL (test code = 2237) NOTE MG/DL CBC W/AUTO [id number] 00:00:00* Test Item Value Reference Range Interpretation Comme nts WBC (test code = 1001) 5.1 K/UL RBC (test code = 1002) 4.00 M/UL HEMOGLOBIN (test code = 1003) 12.9 G/DL HEMATOCRIT (test code = 1004) 37.8 % MCV (test code = 1005) 94.5 fL MCH (test code = 1006) 32.3 PG MCHC (test code = 1007) 34.1 G/DL RDW (test code = 1038) 12.5 % NEUTROPHILS (test code = 1008) 44.7 % LYMPHOCYTES (test code = 1010) 44.6 % MONOCYTES (test code = 1011) 8.7 % EOSINOPHILS (test code = 1012) 1.2 % BASOPHILS (test code = 1013) 0.8 % PLATELET COUNT (test code = 1015) 175 K/UL HEMOGLOBIN [id number] 00:00:00* Test Item Value Reference Range Interpretation Comme [facility] HEMOGLOBIN A1c (test code = 74157) 6.3 % THYROID II PROFILE (T3U, T4, T7, TSH)2016-05-26 00:00:00* Test Item Value Reference Range Interpretation Comme nts T3 UPTAKE (test code = 2817) 22.8 % T4 (THYROXINE) (test code = 2819) 4.2 UG/DL CALCULATED T7 (FTI) (test co de = 2820) 0.96 TSH (test code = 2821) 4.2 UIU/ML HEMOGLOBIN [id number] 00:00:00* Test Item Value Reference Range Interpretation Comme [facility] HEMOGLOBIN A1c (test code = 33591) 6.3 % Ricardo AraujoTHYROID II PROFILE (T3U, T4, T7, TSH)2016-05-26 00:00:00* Test Item Value Reference Range Interpretation Comme nts T3 UPTAKE (test code = 2817) 22.8 % T4 (THYROXINE) (test code = 2819) 4.2 UG/DL CALCULATED T7 (FTI) (test co de = 2820) 0.96 TSH (test code = 2821) 4.2 UIU/ML Ricardo AraujoCOMPREHENSIVE METABOLIC [id number] 00:00:00* Test Item Value Reference Range Interpretation Comme nts GLUCOSE (test code = 2217) 142 MG/DL BUN (test code = 2208) 11 MG/DL CREATININE (test code = 2214) 0.50 MG/DL eGFR AMER. (test cod e = 03419) 136 ML/MIN/1.73 eGFR NON- AMER. (test code = 27419) 118 ML/MIN/1.73 CALC BUN/CREAT (test code = 2235) 22 RATIO SODIUM (test code = 2231) 141 MEQ/L POTASSIUM (test code = 2228) 4.0 MEQ/L CHLORIDE (test code = 2215) 99 MEQ/L CARBON DIOXIDE (test code = 2206) 24 MEQ/L CALCIUM (test code = 2209) 9.0 MG/DL PROTEIN, TOTAL (test code = 2229) 7.0 G/DL ALBUMIN (test code = 2201) 4.3 G/DL CALC GLOBULIN (test code = 2240) 2.7 G/DL CALC A/G RATIO (test code = 2234) 1.6 RATIO BILIRUBIN, TOTAL (test code = 2207) 0.1 MG/DL ALKALINE PHOSPHATASE (test code = 2204) 121 U/L AST (test code = 2218) 27 U/L ALT (test code = 2219) 20 U/L Ricardo AraujoHEMOGLOBIN [id number] 00:00:00* Test Item Value Reference Range Interpretation Comme [facility] HEMOGLOBIN A1c (test code = 43653) 6.3 % HEMOGLOBIN [id number] 00:00:00* Test Item Value Reference Range Interpretation Comme nts HEMOGLOBIN A1c (test code = 60625) 6.3 % Ricardo F AustinLIPID [id number] 00:00:00* Test Item Value Reference Range Interpretation Comme nts CHOLESTEROL (test code = 2210) 202 MG/DL TRIGLYCERIDES (test code = 2232) 203 MG/DL HDL CHOLESTEROL (test code = 2220) 80 MG/DL CALCULATED LDL CHOL (test co de = 2237) 81 MG/DL RISK RATIO LDL/HDL (test cod e = 2238) 1.02 RATIO Ricardo Isaacs AustinCOMPREHENSIVE METABOLIC [id number] 00:00:00* Test Item Value Reference Range Interpretation Comme nts GLUCOSE (test code = 2217) 120 MG/DL BUN (test code = 2208) 15 MG/DL CREATININE (test code = 2214) 0.51 MG/DL eGFR AMER. (test cod e = 95297) 136 ML/MIN/1.73 eGFR NON- AMER. (test code = 71302) 118 ML/MIN/1.73 CALCULATED BUN/CREAT (test code = 2235) 29 RATIO SODIUM (test code = 2231) 138 MEQ/L POTASSIUM (test code = 2228) 4.2 MEQ/L CHLORIDE (test code = 2215) 100 MEQ/L CARBON DIOXIDE (test code = 2206) 25 MEQ/L CALCIUM (test code = 2209) 9.3 MG/DL PROTEIN, TOTAL (test code = 2229) 7.1 G/DL ALBUMIN (test code = 2201) 4.1 G/DL CALCULATED GLOBULIN (test code = 2240) 3.0 G/DL CALCULATED A/G RATIO (test code = 2234) 1.4 RATIO BILIRUBIN, TOTAL (test code = 2207) 0.2 MG/DL ALKALINE PHOSPHATASE (test code = 2204) 104 U/L SGOT (AST) (test code = 2218) 20 U/L SGPT (ALT) (test code = 2219) 21 U/L LIPID [id number] 00:00:00* Test Item Value Reference Range Interpretation Comme nts CHOLESTEROL (test code = 2210) 202 MG/DL TRIGLYCERIDES (test code = 2232) 203 MG/DL HDL CHOLESTEROL (test code = 2220) 80 MG/DL CALCULATED LDL CHOL (test co de = 2237) 81 MG/DL RISK RATIO LDL/HDL (test cod e = 2238) 1.02 RATIO CBC W/AUTO [id number] 00:00:00* Test Item Value Reference Range Interpretation Comme nts WBC (test code = 1001) 5.0 K/UL RBC (test code = 1002) 4.15 M/UL HEMOGLOBIN (test code = 1003) 13.4 G/DL HEMATOCRIT (test code = 1004) 38.6 % MCV (test code = 1005) 93.0 fL MCH (test code = 1006) 32.3 PG MCHC (test code = 1007) 34.7 G/DL RDW (test code = 1038) 13.6 % NEUTROPHILS (test code = 1008) 42 % LYMPHOCYTES (test code = 1010) 51 % MONOCYTES (test code = 1011) 6 % EOSINOPHILS (test code = 1012) 1 % BASOPHILS (test code = 1013) % PLATELET COUNT (test code = 1015) 221 K/UL COMMENTS (test code = 1016) (NOTE) [id number] 00:00:00* Test Item Value Reference Range Interpretation Comme nts TSH (test code = 2821) 3.1 UIU/ML CBC W/AUTO [id number] 00:00:00* Test Item Value Reference Range Interpretation Comme nts WBC (test code = 1001) 5.0 K/UL RBC (test code = 1002) 4.15 M/UL HEMOGLOBIN (test code = 1003) 13.4 G/DL HEMATOCRIT (test code = 1004) 38.6 % MCV (test code = 1005) 93.0 fL MCH (test code = 1006) 32.3 PG MCHC (test code = 1007) 34.7 G/DL RDW (test code = 1038) 13.6 % NEUTROPHILS (test code = 1008) 42 % LYMPHOCYTES (test code = 1010) 51 % MONOCYTES (test code = 1011) 6 % EOSINOPHILS (test code = 1012) 1 % PLATELET COUNT (test code = 1015) 221 K/UL COMMENTS (test code = 1016) (NOTE) Ricardo [id number] 00:00:00* Test Item Value Reference Range Interpretation Comme nts TSH (test code = 2821) 3.1 UIU/ML Ricardo AraujoCOMPREHENSIVE METABOLIC [id number] 00:00:00* Test Item Value Reference Range Interpretation Comme nts GLUCOSE (test code = 2217) 120 MG/DL BUN (test code = 2208) 15 MG/DL CREATININE (test code = 2214) 0.51 MG/DL eGFR AMER. (test cod e = 11051) 136 ML/MIN/1.73 eGFR NON- AMER. (test code = 86673) 118 ML/MIN/1.73 CALCULATED BUN/CREAT (test code = 2235) 29 RATIO SODIUM (test code = 2231) 138 MEQ/L POTASSIUM (test code = 2228) 4.2 MEQ/L CHLORIDE (test code = 2215) 100 MEQ/L CARBON DIOXIDE (test code = 2206) 25 MEQ/L CALCIUM (test code = 2209) 9.3 MG/DL PROTEIN, TOTAL (test code = 2229) 7.1 G/DL ALBUMIN (test code = 2201) 4.1 G/DL CALCULATED GLOBULIN (test code = 2240) 3.0 G/DL CALCULATED A/G RATIO (test code = 2234) 1.4 RATIO BILIRUBIN, TOTAL (test code = 2207) 0.2 MG/DL ALKALINE PHOSPHATASE (test code = 2204) 104 U/L SGOT (AST) (test code = 2218) 20 U/L SGPT (ALT) (test code = 2219) 21 U/L Ricardo Isaacs AustinLIPID [id number] 00:00:00* Test Item Value Reference Range Interpretation Comme nts CHOLESTEROL (test code = 2210) 190 MG/DL TRIGLYCERIDES (test code = 2232) 251 MG/DL HDL CHOLESTEROL (test code = 2220) 70 MG/DL CALCULATED LDL CHOL (test co de = 2237) 70 MG/DL RISK RATIO LDL/HDL (test cod e = 2238) 1.00 RATIO Ricardo Isaacs VanCOMPREHENSIVE METABOLIC [id number] 00:00:00* Test Item Value Reference Range Interpretation Comme nts GLUCOSE (test code = 2217) 101 MG/DL BUN (test code = 2208) 16 MG/DL CREATININE (test code = 2214) 0.5 MG/DL eGFR AMER. (test cod e = 34939) 163 ML/MIN/1.73 eGFR NON- AMER. (test code = 71587) 135 ML/MIN/1.73 CALCULATED BUN/CREAT (test code = 2235) 32 RATIO SODIUM (test code = 2231) 138 MEQ/L POTASSIUM (test code = 2228) 4.2 MEQ/L CHLORIDE (test code = 2215) 102 MEQ/L CARBON DIOXIDE (test code = 2206) 25 MEQ/L CALCIUM (test code = 2209) 8.5 MG/DL PROTEIN, TOTAL (test code = 2229) 6.8 G/DL ALBUMIN (test code = 2201) 3.7 G/DL CALCULATED GLOBULIN (test code = 2240) 3.1 G/DL CALCULATED A/G RATIO (test code = 2234) 1.2 RATIO BILIRUBIN, TOTAL (test code = 2207) 0.3 MG/DL ALKALINE PHOSPHATASE (test code = 2204) 90 U/L SGOT (AST) (test code = 2218) 16 U/L SGPT (ALT) (test code = 2219) 13 U/L LIPID [id number] 00:00:00* Test Item Value Reference Range Interpretation Comme nts CHOLESTEROL (test code = 2210) 190 MG/DL TRIGLYCERIDES (test code = 2232) 251 MG/DL HDL CHOLESTEROL (test code = 2220) 70 MG/DL CALCULATED LDL CHOL (test co de = 2237) 70 MG/DL RISK RATIO LDL/HDL (test cod e = 2238) 1.00 RATIO CBC W/AUTO [id number] 00:00:00* Test Item Value Reference Range Interpretation Comme nts WBC (test code = 1001) 5.9 K/UL RBC (test code = 1002) 3.84 M/UL HEMOGLOBIN (test code = 1003) 12.1 G/DL HEMATOCRIT (test code = 1004) 36.5 % MCV (test code = 1005) 95.1 fL MCH (test code = 1006) 31.5 PG MCHC (test code = 1007) 33.2 G/DL RDW (test code = 1038) 13.6 % NEUTROPHILS (test code = 1008) 56 % LYMPHOCYTES (test code = 1010) 37 % MONOCYTES (test code = 1011) 6 % EOSINOPHILS (test code = 1012) 1 % BASOPHILS (test code = 1013) % PLATELET COUNT (test code = 1015) 204 K/UL HEMOGLOBIN [id number] 00:00:00* Test Item Value Reference Range Interpretation Comme nts HEMOGLOBIN A1c (test code = 63539) 6.3 % [id number] 00:00:00* Test Item Value Reference Range Interpretation Comme nts TSH (test code = 2821) 3.1 UIU/ML MICROALBUMIN/CREATININE, RANDOM AND [id number] 00:00:00* Test Item Value Reference Range Interpretation Comme nts CREATININE, URINE, CONC. (te st code = 2071) 169 MG/DL MICROALBUMIN, RANDOM (test c ode = 88132) 2.3 MG/DL CALC MICROALB/CREAT RND (rebecca t code = 82195) 14 MG/G CBC W/AUTO [id number] 00:00:00* Test Item Value Reference Range Interpretation Comme nts WBC (test code = 1001) 5.9 K/UL RBC (test code = 1002) 3.84 M/UL HEMOGLOBIN (test code = 1003) 12.1 G/DL HEMATOCRIT (test code = 1004) 36.5 % MCV (test code = 1005) 95.1 fL MCH (test code = 1006) 31.5 PG MCHC (test code = 1007) 33.2 G/DL RDW (test code = 1038) 13.6 % NEUTROPHILS (test code = 1008) 56 % LYMPHOCYTES (test code = 1010) 37 % MONOCYTES (test code = 1011) 6 % EOSINOPHILS (test code = 1012) 1 % PLATELET COUNT (test code = 1015) 204 K/UL Ricardo Isaacs AustinHEMOGLOBIN [id number] 00:00:00* Test Item Value Reference Range Interpretation Comme nts HEMOGLOBIN A1c (test code = 59064) 6.3 % Ricardo Isaacs [id number] 00:00:00* Test Item Value Reference Range Interpretation Comme nts TSH (test code = 2821) 3.1 UIU/ML Ricardo F AustinMICROALBUMIN/CREATININE, RANDOM AND [id number] 00:00:00* Test Item Value Reference Range Interpretation Comme nts CREATININE, URINE, CONC. (te st code = 2071) 169 MG/DL MICROALBUMIN, RANDOM (test c ode = 28588) 2.3 MG/DL CALC MICROALB/CREAT RND (rebecca t code = 68271) 14 MG/G Ricardo F AustinCOMPREHENSIVE METABOLIC [id number] 00:00:00* Test Item Value Reference Range Interpretation Comme nts GLUCOSE (test code = 2217) 101 MG/DL BUN (test code = 2208) 16 MG/DL CREATININE (test code = 2214) 0.5 MG/DL eGFR AMER. (test cod e = 60041) 163 ML/MIN/1.73 eGFR NON- AMER. (test code = 94313) 135 ML/MIN/1.73 CALCULATED BUN/CREAT (test code = 2235) 32 RATIO SODIUM (test code = 2231) 138 MEQ/L POTASSIUM (test code = 2228) 4.2 MEQ/L CHLORIDE (test code = 2215) 102 MEQ/L CARBON DIOXIDE (test code = 2206) 25 MEQ/L CALCIUM (test code = 2209) 8.5 MG/DL PROTEIN, TOTAL (test code = 2229) 6.8 G/DL ALBUMIN (test code = 2201) 3.7 G/DL CALCULATED GLOBULIN (test code = 2240) 3.1 G/DL CALCULATED A/G RATIO (test code = 2234) 1.2 RATIO BILIRUBIN, TOTAL (test code = 2207) 0.3 MG/DL ALKALINE PHOSPHATASE (test code = 2204) 90 U/L SGOT (AST) (test code = 2218) 16 U/L SGPT (ALT) (test code = 2219) 13 U/L Ricardo Araujo Notes Date/Time Note Provider Source 2024-01-17 11:35:32 PT D/C home. GCS15, VS stable, no ataxia noted. Given two prescriptions and D/C paperwork. Pt pushed in wheelchair by family at time of discharge. Pt educated on use of antipyretics, med usage, follow up care, s/s worsening condition. Pt verbalized understanding. [facility] 2024-01-17 08:59:53 For about a week pt has had body aches, fever, cough. Has progressively felt more fatigued. Arrived in wheelchair. Has not taken any medications for fever. Mercedes Cormier RN [facility]
[2024-04-15] MEDS ORDERED: FAMOTIDINE 20 MG/2 ML VIAL IV ONE (19:10)
[2024-04-15] MEDS ORDERED: NA CHLORIDE 0.9% 1,000 ML ONE (19:10)
[2024-04-15] MEDS ORDERED: MORPHINE 4 MG/ML SYR ONE ×2 (19:10→22:17)
[2024-04-15] MEDS ORDERED: ONDANSETRON 4 MG/2 ML VIAL ONE (19:10)
[2024-04-15 19:17] LABS: Specific Gravity 1.022 (1.005-1.030)
[2024-04-15 19:21] LABS: Specific Gravity 1.022 (1.005-1.030); Sqamous Epithelial <5 /HPF (None Seen); Urine Bacteria <20 /HPF (<20); Urine Bilirubin 1+ (Negative); Urine Blood Negative (Negative); Urine Clarity Extremely Turbid (Clear); Urine Color Dark-Yellow (Yellow); Urine Crystals Unidentified Many /HPF (None Seen); Urine Culture Reflex Order REFLEXED; Urine Glucose NEGATIVE (Negative); Urine Ketones NEGATIVE (Negative); Urine Microscopic Reflex YN ORDER UMIC; Urine Nitrite NEGATIVE (Negative); Urine Protein 1+ (Negative); Urine RBC <5 /HPF (None Seen); Urine Urobilinogen 2+ (Normal); Urine WBC 20-50 /HPF (<5); Urine WBC Clump Few /HPF (None Seen); Urine Yeast (Budding) Many /HPF (None Seen); Urine pH 7.5 (5.0-7.0)
[2024-04-15 20:05] LABS: Absolute Lymphocytes (CBC) 0.9 K/uL (0.7-4.9); Absolute Monocytes 0.6 K/uL (0.1-1.3); Absolute Neutrophil 10.3 K/uL (1.8-8.0); Basophils % 0.1 % (0-1.3); Hematocrit 39.4 % (36.0-45.0); Hemoglobin 13.3 g/dL (12.0-15.0); MCH 32.2 pg (27.0-35.0); MCHC 33.7 g/dL (32.0-36.0); MCV 95.5 fL (80-100); MPV 8.5 fL (7.6-11.3); Monocytes % 4.9 % (3.3-12.3); Nucleated Red Blood Cells % 0.1 % (0-0); Platelets 193 thou/uL (152-406); RBC Red Blood Cell Count 4.13 M/uL (3.86-4.86); Red Cell Distribution Width 13.5 % (12.1-15.2)
[2024-04-15 20:12] LABS: Albumin 4.1 g/dL (3.4-5.0); Anion Gap 10.4 mEq/L (5.0-15.0); Bilirubin Total 2.9 mg/dL (0.2-1.0); Globulin 4.1 g/dL (2.3-3.5); Potassium 3.4 mEq/L (3.5-5.1); Protein, Total 8.2 g/dL (6.4-8.2)
--- NOTE | 2024-04-15 20:55 | RAD REPORT ---
EXAMINATION: CT ABDOMEN AND PELVIS WITH CONTRAST CLINICAL INDICATION: Abdominal pain TECHNIQUE: CT abdomen and pelvis was performed, after the administration of 100 cc Isovue-300.. Sagit sonia and coronal reconstructions were obtained. One or more of the following dose reduction techniques were used: Automated exposure control, adjustment of the mA and kV according to patient si ze, and iterative reconstruction. Unless otherwise specified, incidental findings do not require dedicated imaging follow-up. [id number]. Oral contrast was not given which limits evaluation of bowel and appendix. COMPARISON: 2018 FINDINGS: Small densities within the gallbladder. Gallbladder is distended. Common bile duct is dilated. 12 mm increased density is present within common bile duct.. Liver, spleen, pancreas, adrenals and kidneys appear unremarkable No evidence of diverticulitis. Normal appendix. IUD present. : IMPRESSION: Increased density within the gallbladder probably cholelithiasis. Gallbladder is distended. Increased density within the common bile duct probably stone. A mass is another consideration but pro bably less likely. Dilatation of the common bile duct. Further evaluation with ERCP or MRCP recommended
--- NOTE | 2024-04-15 21:41 | RAD REPORT ---
EXAM: Right upper quadrant ultrasound. CLINICAL HISTORY: Abdominal pain COMPARISON: CT abdomen April 15, 2024 FINDINGS: Multiple gallstones. Gallbladder is mildly distended. Gallbladder wall not thickened. The common bile duct measures 14 mm A stone is present within the duct. IMPRESSION: Cholelithiasis with mild gallbladder distention. Choledocholithiasis with dilatation of the common bile duct
--- NOTE | 2024-04-15 21:52 | ER ---
Nurse's Notes [facility] Name: Flores Whalen Age: 54 yrs Sex: Female : 1970 Arrival Date: 04/15/2024 Time: 18:19 Bed 7 Private MD: Diagnosis: Nausea;Upper abdominal pain, unspecified;Diabetes mellitus due to underlying condition with hyperglycemia;Calculus of gallbladder and bile duct without cholecystitis with obstruction;UTI/ Urinary tract infection, site not specified Presentation: 04/15 18:50 Chief complaint: Patient states: abdominal pain started last night, vomiting. ko1 Coronavirus screen: At this time, the client does not indicate any symptoms associated with coronavirus-19. Ebola Screen: No symptoms or risks identified at this time. Initial Sepsis Screen: Does the patient meet any 2 criteria? No. Patient's initial sepsis screen is negative. Does the patient have a suspected source of infection? No. Patient's initial sepsis screen is negative. Risk Assessment: Do you want to hurt yourself or someone else? Patient reports no desire to harm self or others. Onset of symptoms was April 15, 2024. 18:50 Method Of Arrival: Ambulatory ko1 18:50 Acuity: BEATRICE 3 ko1 Triage Assessment: 18:53 General: Appears uncomfortable, Behavior is calm, cooperative, appropriate for age. ko1 Pain: Complains of pain in abdomen. GI: Reports upper abdominal pain, nausea, vomiting. 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 - Infectious Disease History:: Denies. - Social history:: Smoking status: Patient denies any tobacco usage or history of. Screenin:00 [facility] ED Fall Risk Assessment (Adult) History of falling in the last 3 months, ay including since admission No falls in past 3 months (0 pts) Confusion or Disorientation No (0 pts) Intoxicated or Sedated No (0 pts) Impaired Gait No (0 pts) Mobility Assist Device Used No (0 pt) Altered Elimination No (0 pt) Score/Fall Risk Level 0 - 2 = Low Risk Oriented to surroundings, Maintained a safe environment, Educated pt \T\ family on fall prevention, incl call for assistance when getting out of bed, Hourly rounding (assess needs \T\ fall precautionary measures) done. Abuse screen: Denies threats or abuse. Nutritional screening: No deficits noted. Tuberculosis screening: No symptoms or risk factors identified. Assessment: 19:55 General: Appears in no apparent distress. uncomfortable, Behavior is cooperative. Pain: ay Complains of pain in abdomen lower back. Neuro: Level of Consciousness is awake, alert, obeys commands, Oriented to person, place, time, situation, Speech is normal, Facial symmetry appears normal. Cardiovascular: Heart tones S1 S2. Respiratory: Airway is patent. GI: Bowel sounds present X 4 quads. Abdomen is tender to palpation X 4 quads. : Denies burning with urination. Musculoskeletal: Capillary refill < 3 seconds. Vital Signs: 18:50 BP 148 / 84; Pulse 72; Resp 18; Temp 97; Pulse Ox 99% ; ko1 19:00 BP 156 / 78; Pulse 65; Resp 18; Pulse Ox 96% on R/A; ay 20:14 BP 149 / 75; Pulse 68; Resp 18; Pulse Ox 98% on R/A; ay 20:53 BP 170 / 84; Pulse 72; Resp 18; Pulse Ox 97% on R/A; ay 21:00 BP 160 / 82; Pulse 76; Resp 18; Pulse Ox 97% on R/A; ay 22:15 BP 130 / 83; Pulse 66; Resp 18; Pulse Ox 95% on R/A; ay [place] Coma Score: 19:00 Eye Response: spontaneous(4). Motor Response: obeys commands(6). Verbal Response: ay oriented(5). Total: 15. ED Course: 18:20 Patient arrived in ED. mr 18:31 Umair Grady PA is PHCP. cp 18:31 James Gonzalez MD is Attending Physician. cp 18:53 Triage completed. ko1 18:53 Arm band placed on right wrist. Patient placed in waiting room, Patient notified of ko1 wait time. 19:00 Radiology exam delayed due to IV insertion attempt and/or patient not having nj appropriate IV at this time. 19:00 Radiology exam delayed due to lab results not completed at this time. (BUN/Creatinine). nj 19:00 Patient has correct armband on for positive identification. Bed in low position. Call ay light in reach. Side rails up X2. Door closed. Noise minimized. 19:00 Inserted saline lock: 22 gauge in right upper arm, using aseptic technique. ay 19:13 Test, Urine Sent. oe 19:13 Urinalysis w/ reflexes Sent. oe 19:52 Meghna Dinero, RN is Primary Nurse. ay 20:44 CT Abd/Pelvis - IV Contrast Only In Process Unspecified. EDMS 21:33 US Abdomen Limited: gallbladder In Process Unspecified. EDMS 21:50 Casper Cunningham MD is Hospitalizing Provider. cp 21:56 EKG done, by ED staff, reviewed by Umair TITUS. ty 22:02 XRAY Chest (1 view) In Process Unspecified. EDMS 23:09 Provided Education on: Procedure Consent. ay 23:09 No provider procedures requiring assistance completed. Patient admitted, IV remains in ay place. intact, No redness/swelling at site. Administered Medications: 19:44 Drug: Famotidine IVP 20 mg IVP once; dilute with 10 mL 0.9% NaCl; give over 2 minutes jb4 Route: IVP; Site: right upper arm; 22:08 Follow up: Response: No adverse reaction ay 19:44 Drug: Ondansetron IVP 4 mg IVP once; over 2 minutes Route: IVP; Site: right upper arm; jb4 22:10 Follow up: Response: No adverse reaction ay 19:44 Drug: morphine IVP or IV 4 mg IVP once over 4 mins Route: IVP; Infused Over: 4 mins; jb4 Site: right upper arm; 22:10 Follow up: Response: No adverse reaction ay 19:44 Drug: NS 0.9% IV 1000 ml IV at 1 bolus Per protocol; to be given as a bolus over 60 jb4 minutes Route: IV; Rate: 1 bolus; Site: right upper arm; 22:08 Follow up: Response: No adverse reaction; IV Status: Completed infusion; IV Intake: ay 1000ml 22:51 Drug: morphine IVP or IV 4 mg IVP once over 4 mins Route: IVP; Infused Over: 4 mins; ay Site: right upper arm; 23:21 Follow up: Response: No adverse reaction ay 22:52 Drug: Piperacillin-Tazobactam IVPB 3.375 grams IVPB once over 60 mins; (mix in NS 100 ay mL) Route: IVPB; Infused Over: 60 mins; Site: right upper arm; 22:52 Drug: Potassium PO Effervescent Tablet 25 mEq PO once; dissolve in 4 ounces of water or ay juice Route: PO; 23:21 Follow up: Response: No adverse reaction ay Medication: 19:00 VIS not applicable for this client. ay Intake: 22:08 IV: 1000ml; Total: 1000ml. ay Outcome: 21:52 Decision to Hospitalize by Provider. cp 23:09 Admitted to Med/surg accompanied by nurse, via wheelchair, room 230, with chart, ay 23:09 Condition: stable 23:09 Instructed on the need for admit, 23:28 Patient left the ED. jb4 Signatures: Dispatcher [employer] EDMS Kassy Fagan, Brad Reg mr Umair Grady, TACHO PA cp Brandyn Banerjee, RN RN jb4 Donnie Gore [place] oe Oliver, Kathy, RN RN Adrien Villegas Awudu, RN RN ay
--- NOTE | 2024-04-15 21:52 | EDPHYS ---
Physician Documentation [facility] Name: Flores Whalen Age: 54 yrs Sex: Female : 1970 Arrival Date: 04/15/2024 Time: 18:19 Bed 7 Private MD: ED Physician James Gonzalez HPI: 04/15 19:05 This 54 yrs old Female presents to ER via Ambulatory with complaints of cp Abdominal Pain. 19:05 The patient presents with abdominal pain in the epigastric area, in the upper abdomen. cp 19:05 Onset: The symptoms/episode began/occurred this morning. Associated signs and symptoms: cp Pertinent positives: nausea and vomiting. 19:05 The symptoms radiate to back. Severity of pain: in the emergency department the pain is cp unchanged despite home interventions. IPAD translation services used to obtain HPI. 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 - Infectious Disease History:: Denies. - Social history:: Smoking status: Patient denies any tobacco usage or history of. ROS: 19:10 Constitutional: Negative for body aches, chills, fever, cp 19:10 Eyes: Negative for injury, pain, redness, and discharge, cp 19:10 Cardiovascular: Negative for chest pain, palpitations, 19:10 Respiratory: Negative for cough, shortness of breath, wheezing, 19:10 Abdomen/GI: Positive for abdominal pain, nausea and vomiting, Negative for diarrhea, constipation, active vomiting, 19:10 Back: Positive for radiated pain, 19:10 Neuro: Negative for altered mental status, headache, weakness, 19:10 All other systems are negative, Exam: 19:15 Constitutional: The patient appears in no acute distress, alert, awake, non-toxic, well cp developed, well nourished, obese, uncomfortable, 19:15 Head/Face: Normocephalic, atraumatic. cp 19:15 Eyes: Periorbital structures: appear normal, Conjunctiva: normal, no exudate, no injection, Sclera: no appreciated abnormality, Lids and lashes: appear normal, bilaterally, 19:15 ENT: External ear(s): are unremarkable, Nose: is normal, Mouth: Lips: moist, Oral mucosa: pink and intact, moist, Posterior pharynx: Airway: no evidence of obstruction, patent, 19:15 Chest/axilla: Inspection: normal, 19:15 Cardiovascular: Rate: normal, Rhythm: regular, 19:15 Respiratory: the patient does not display signs of respiratory distress, Respirations: normal, no use of accessory muscles, no retractions, labored breathing, is not present, Breath sounds: are clear throughout, no decreased breath sounds, no stridor, no wheezing, 19:15 Abdomen/GI: Inspection: obese Bowel sounds: active, all quadrants, Palpation: soft, in all quadrants, moderate abdominal tenderness, in the epigastric area and right upper quadrant, rebound tenderness, is not appreciated, voluntary guarding, is elicited in the epigastric area and right upper quadrant, 19:15 Back: CVA tenderness, is absent, 19:15 Neuro: Orientation: to person, place \T\ time. Mentation: is normal, Motor: moves all fours, strength is normal, 22:00 ECG was reviewed by the Attending Physician. Vital Signs: 18:50 BP 148 / 84; Pulse 72; Resp 18; Temp 97; Pulse Ox 99% ; ko1 19:00 BP 156 / 78; Pulse 65; Resp 18; Pulse Ox 96% on R/A; ay 20:14 BP 149 / 75; Pulse 68; Resp 18; Pulse Ox 98% on R/A; ay 20:53 BP 170 / 84; Pulse 72; Resp 18; Pulse Ox 97% on R/A; ay 21:00 BP 160 / 82; Pulse 76; Resp 18; Pulse Ox 97% on R/A; ay 22:15 BP 130 / 83; Pulse 66; Resp 18; Pulse Ox 95% on R/A; ay Alejandra Coma Score: 19:00 Eye Response: spontaneous(4). Motor Response: obeys commands(6). Verbal Response: ay oriented(5). Total: 15. MDM: 18:59 Medical Screening Exam initiated cp 21:12 Management of patient was discussed with the following: Teleradiologist: DR Be who will cp consult. 21:18 Management of patient was discussed with the following: Teleradiologist: DR Meier will cp consult and wants MRCP done in morning and to have patient npo at midnight. 21:25 Data reviewed: vital signs, nurses notes, lab test result(s), radiologic studies, CT cp scan, ultrasound, and as a result, I will admit patient, administer antibiotics Zosyn. 21:25 I considered the following discharge prescriptions or medication management in the emergency department Medications were administered in the Emergency Department. See MAR. Care significantly affected by the following chronic conditions: Diabetes, Hypertension, Obesity. Counseling: I had a detailed discussion with the patient and/or guardian regarding the historical points, exam findings, and any diagnostic results supporting the discharge/admit diagnosis, lab results, radiology results, the need for further work-up and treatment in the hospital. 04/15 18:58 Order name: CBC with Diff 04/15 21:00 Interpretation: Normal except: WBC 11.80; KONRAD% 87.0; LYM% 8.0; NEUT A 10.3. 04/15 18:58 Order name: CMP; Complete Time: 21:00 04/15 21:00 Interpretation: Normal except: NA 135; K 3.4; GLUC 141; CRE 0.50; AST 319; ALT 182; ALK cp 265; BILIT 2.9; GLOB 4.1; A/G 1.0. 04/15 18:58 Order name: Lipase; Complete Time: 21:00 04/15 21:17 Interpretation: Reviewed. 04/15 18:58 Order name: Test, Urine; Complete Time: 21:00 04/15 18:58 Order name: Urinalysis w/ reflexes; Complete Time: 21:00 04/15 19:25 Order name: Urine Culture EDGA 04/15 21:01 Order name: Lactate w/ 2H reflex if indic. 04/15 21:01 Order name: Blood Culture Adult (2) cp 04/15 21:13 Order name: PT-INR 04/15 21:13 Order name: Ptt, Activated cp 04/15 21:14 Order name: Troponin High Sensitivity 04/15 21:58 Order name: Urinalysis w/ reflexes EDMS 04/15 21:58 Order name: CBC with Automated Diff EDMS 04/15 21:58 Order name: CBC with Automated Diff EDMS 04/15 21:58 Order name: Comprehensive Metabolic Panel EDGA 04/15 21:58 Order name: Comprehensive Metabolic Panel EDMS 04/15 19:52 Order name: CT Abd/Pelvis - IV Contrast Only; Complete Time: 21:00 cp 04/15 21:03 Order name: US Abdomen Limited: gallbladder; Complete Time: 21:52 04/15 21:14 Order name: XRAY Chest (1 view) 04/15 21:14 Order name: EKG; Complete Time: 21:14 04/15 21:58 Order name: CONS Physician Consult [facility] 04/15 18:58 Order name: IV Saline Lock; Complete Time: 20:13 04/15 18:58 Order name: Labs collected and sent; Complete Time: 20:13 04/15 21:14 Order name: EKG - Nurse/Tech; Complete Time: 21:56 cp EC:00 Rate is 68 beats/min. Rhythm is regular. [place] interval is normal. QRS interval is normal. cp QT interval is normal. T waves are Inverted in lead aVR. Interpreted by me. Reviewed by me. Administered Medications: 19:44 Drug: Famotidine IVP 20 mg IVP once; dilute with 10 mL 0.9% NaCl; give over 2 minutes jb4 Route: IVP; Site: right upper arm; 22:08 Follow up: Response: No adverse reaction ay 19:44 Drug: Ondansetron IVP 4 mg IVP once; over 2 minutes Route: IVP; Site: right upper arm; jb4 22:10 Follow up: Response: No adverse reaction ay 19:44 Drug: morphine IVP or IV 4 mg IVP once over 4 mins Route: IVP; Infused Over: 4 mins; jb4 Site: right upper arm; 22:10 Follow up: Response: No adverse reaction ay 19:44 Drug: NS 0.9% IV 1000 ml IV at 1 bolus Per protocol; to be given as a bolus over 60 jb4 minutes Route: IV; Rate: 1 bolus; Site: right upper arm; 22:08 Follow up: Response: No adverse reaction; IV Status: Completed infusion; IV Intake: ay 1000ml 22:51 Drug: morphine IVP or IV 4 mg IVP once over 4 mins Route: IVP; Infused Over: 4 mins; ay Site: right upper arm; 23:21 Follow up: Response: No adverse reaction ay 22:52 Drug: Piperacillin-Tazobactam IVPB 3.375 grams IVPB once over 60 mins; (mix in NS 100 ay mL) Route: IVPB; Infused Over: 60 mins; Site: right upper arm; 22:52 Drug: Potassium PO Effervescent Tablet 25 mEq PO once; dissolve in 4 ounces of water or ay juice Route: PO; 23:21 Follow up: Response: No adverse reaction ay Disposition Summary: 04/15/24 21:52 Hospitalization Ordered Notes: Hospitalization Status: Inpatient Admission cp Provider: Casper Cunningham cp Condition: Stable cp Problem: new cp Symptoms: have improved cp Bed/Room Type: Standard cp Location: Telemetry/MedSurg (Inpatient)(04/15/24 22:05) rv1 Room Assignment: 230(04/15/24 22:05) rv1 Diagnosis - Nausea cp - Upper abdominal pain, unspecified cp - Diabetes mellitus due to underlying condition with hyperglycemia cp - Calculus of gallbladder and bile duct without cholecystitis with obstruction cp - UTI/ Urinary tract infection, site not specified cp Discharge Instructions: - Discharge Summary Sheet ay Forms: - Medication Reconciliation Form cp - Leadership Thank You Letter cp - SBAR form ay Addendum: 04/21/2024 17:19 Co-signature as Attending Physician, James Gonzalez MD I reviewed the patient's care r n provided by the Advanced Practice Provider and agree with the diagnosis and treatment plan. Signatures: Dispatcher [employer] EDGA James Gonzalez MD MD rn Page, Corey, PA PA cp Brandyn Banerjee RN RUBINA jb4 Dorene Clark RN RN ko1 Zara Max rv1 Meghna Dinero RN RN ay Corrections: (The following items were deleted from the chart) 04/15 18:59 18:58 Abdomen Pelvis W Con+CT.RAD.BRZ ordered. EDMS EDMS 21:53 21:52 Telemetry/MedSurg (Inpatient) cp rv1 21:53 21:52 cp rv1 21:54 21:52 Calculus of gallbladder and bile duct with acute cholecystitis with obstruction cpcp 22:05 21:53 BR ER HOLD rv1 rv1 22:05 21:53 ERHOLD- rv1 rv1
[2024-04-15] MEDS ORDERED: ONDANSETRON 4 MG/2 ML VIAL IV PRN (21:53)
--- NOTE | 2024-04-15 21:58 | P.HP ---
Certification for Inpatient Patient admitted to: Inpatient With expected LOS: >2 Midnights Practitioner: I am a practitioner with admitting privileges, knowledge of patient current condition, hospital course, and medical plan of care. Services: Services provided to patient in accordance with Admission requirements found in Title 42 Section 412.3 of the Code of Federal Regulations Patient History Date of Service: 04/16/24 Reason for admission: Abdominal pain History of Present Illness: 54 yrs old Female with past medical history of hypertension, diabetes, hyperlipidemia who was brought to ER with abdominal pain. Pain was located in the epigastric region and upper abdomen radiating to the back and also lower down. Associated with nausea and vomiting. Pain started 2 days ago and has been progressively getting worse. No fever or chills. Denies any chest pain or shortness of breath. Pain is cramping type intermittent. Denies any dysuria. Denies any hematemesis or melena. Patient was assessed in the ER and was had a CT which was consistent with cholelithiasis with dilated CBD and was admitted for further management. ; Allergies No Known Allergies Allergy (Unverified 10/20/17 13:14) Home medications list reviewed: Yes Home Medications: Amlodipine [Norvasc*] 10 mg PO DAILY 04/16/24 Lisinopril [Zestril] 20 - 25 mg PO DAILY 04/16/24 - Past Medical/Surgical History Past Medical History: Reviewed- Non-Contributory -: Hypertension, diabetes Past Surgical History: Reviewed- Non-Contributory - Family History Family History: Reviewed- Non-Contributory - Social History Smoking Status: Never smoker Review of Systems 10-point ROS is otherwise unremarkable Physical Examination - Vital Signs Temperature: 97.2 F Blood Pressure: 148/84 Pulse: 76 Respirations: 18 Pulse Ox (%): 94 - Physical Exam General: Alert, In no apparent distress, Oriented x3 HEENT: Atraumatic, Normocephalic Neck: Supple Respiratory: Clear to auscultation bilaterally, Normal air movement Cardiovascular: No edema, Regular rate/rhythm, Normal S1 S2 Capillary refill: <2 Seconds Gastrointestinal: Soft and benign, W/out hepatosplenomegaly Musculoskeletal: No clubbing, No swelling Integumentary: No rashes Neurological: Normal speech, Normal strength at 5/5 x4 extr Lymphatics: No axilla or inguinal lymphadenopathy - Studies Laboratory Data (last 24 hrs) 04/15/24 04/15/24 19:30 19:30 WBC 11.80 H Hgb 13.3 Hct 39.4 Plt Count 193 Sodium 135 L Potassium 3.4 L BUN 11 Creatinine 0.50 L Glucose 141 H Total Bilirubin 2.9 H AST 319 H ALT 182 H Alkaline Phosphatase 265 H Lipase 90 H Assessment and Plan - Plan Cholelithiasis To rule out cholecystitis acute Choledocholithiasis Dilated CBD Pain control Started on IV antibiotic IV fluids Keep n.p.o. for now GI consulted and surgery consulted Will get an MRCP in a.m. Monitor LFTs closely Hypertension Antihypertensives titrated Continue home medications and titrate as needed Hyperlipidemia Continue statin UTI IV antibiotic Will obtain cultures Change antibiotic as per sensitivity Diabetes Insulin sliding scale Accu-Chek before every meal and at bedtime GI/DVT prophylaxis Advanced directive full code Discharge Plan: Home Plan to discharge in: 48 Hours - Advance Directives Does patient have a Living Will: No Does patient have a Durable POA for Healthcare: No - Code Status/Comfort Care Code Status: Full Code Time Spent Managing Pts Care (In Minutes): 48
--- NOTE | 2024-04-15 22:07 | RAD REPORT ---
Procedure: Chest Single View HISTORY: Abdominal pain COMPARISON: none FINDINGS: The lungs appear clear of acute infiltrate. No significant pleural effusion noted. The heart is mildly enlarged.. IMPRESSION: No acute abnormality is displayed.
[2024-04-15] MEDS ORDERED: POTASSIUM 25 MEQ EFFERV TAB ONE (22:16)
[2024-04-15] MEDS ORDERED: PIPERACIL/TAZO 3.375 GM VIAL IV ONE (22:17)
[2024-04-15 22:18] LABS: PT Prothrombin Time 12.5 SECONDS (9.4-12.5); Protime INR 1.12
[2024-04-15 22:19] LABS: Blood Morphology Comment NOT SEEN (NOT SEEN); Platelet Estimate ADEQ; White Blood Cell Scan OK (OK)
[2024-04-15] MEDS ORDERED: NA CHLORIDE 0.9% 100 ML ONE (22:21)
[2024-04-15 23:45] VITALS: BMI 36.7
[2024-04-15] MEDS: D5 0.45 NS 1,000 ML IV SCH (23:55)
[2024-04-16] MEDS: HEPARIN 5000 UNIT/ML 1 ML VIAL SQ SCH (00:31)
[2024-04-16] MEDS: PIPER TAZO 3.375 GM in NA CHLORIDE 0.9% 100 ML IV SCH (01:06)
[2024-04-16 06:21] LABS: Absolute Lymphocytes (CBC) 0.8 K/uL (0.7-4.9); Absolute Monocytes 0.7 K/uL (0.1-1.3); Absolute Neutrophil 10.1 K/uL (1.8-8.0); Basophils % 0.1 % (0-1.3); Hematocrit 38.5 % (36.0-45.0); Hemoglobin 12.6 g/dL (12.0-15.0); Lymphocytes % 7.3 % (15.3-44.8); MCH 31.8 pg (27.0-35.0); MCHC 32.6 g/dL (32.0-36.0); MCV 97.5 fL (80-100); MPV 8.7 fL (7.6-11.3); Monocytes % 5.7 % (3.3-12.3); Neutrophils % 86.9 % (41.7-73.7); Platelets 169 thou/uL (152-406); RBC Red Blood Cell Count 3.95 M/uL (3.86-4.86); Red Cell Distribution Width 13.5 % (12.1-15.2)
[2024-04-16 06:37] LABS: Albumin 3.3 g/dL (3.4-5.0); Albumin/Globulin Ratio 0.9 (1.1-1.8); Anion Gap 8.3 mEq/L (5.0-15.0); Bilirubin Total 3.9 mg/dL (0.2-1.0); Globulin 3.8 g/dL (2.3-3.5); Potassium 3.3 mEq/L (3.5-5.1); Protein, Total 7.1 g/dL (6.4-8.2)
[2024-04-16] MEDS: POTASSIUM CL 40 MEQ in NA CHLORIDE 0.9% 500 ML IV SCH (07:00)
--- NOTE | 2024-04-16 07:38 | P.PN ---
Date of Service: 04/16/24 Subjective: feels abdominal pain is more tolerable after medication 1 episode of nausea / non-bloody emesis this morning. Reports mainly phlegm. breathing okay on room air afebrile ROS: 10 point ROS as noted above, otherwise negative Physical Exam: GEN: Alert, NAD HEENT: Normal conjunctiva, sclera anicteric, CV: Regular rate and rhythm, no edema Pulm: Nonlabored respirations on room air, clear bilaterally ABD: soft, nontender, nondistended Integumentary: No rashes Neuro: Normal speech, normal affect Problem List: Choledocholithiasis, Cholelithiasis Elevated LFTs Possible UTI Hyponatremia Hypertension Hyperlipidemia NIDDM2 Choledocholithiasis, Cholelithiasis Elevated LFTs On admission, presents with epigastric, upper abdominal cramping pains radiating to back associated with nausea/vomiting for ~[address] abdomen (04/15): gallbladder distention with CBD dilatation. Increased density within CBD probably stone. Mass less likely abdominal u/s (04/15): Cholelithiasis with mild gallbladder distention. Choledocholithiasis with dilatation of the common bile duct General surgery, GI consulted MRCP ordered to further eval; NPO for now pain control continue IV fluids continue empiric zosyn (04/16-) trend LFTs Possible UTI UA with WBC, yeast Denies dysuria, fever, chills continue empiric zosyn for now (04/16-) follow urine and blood cultures afebrile, +leukocytosis Hyponatremia monitor and replete electrolytes as needed continue IVF Hypertension Hyperlipidemia confirm home meds, restart as appropriate NIDDM2 accu-chekls, SSI confirm home meds VTE: heparin sq Code: Dispo: Home pending MRCP, surgery/GI recs Time Spent Managing Pts Care (In Minutes): 55 ]
[2024-04-16] MEDS: KCL 20 MEQ/100 mL IVPB 100 ML IV SCH (08:18)
[2024-04-16] MEDS: ACETAMINOPHEN 325 MG TABLET PO PRN (10:23)
--- NOTE | 2024-04-16 11:58 | RAD REPORT ---
EXAMINATION: MR CHOLANGIOGRAM CLINICAL INDICATION: Female, 54 years old. [facility] MAIN N CBD dilated TECHNIQUE: Multiplanar, multisequence MR imaging of the abdomen without intravenous contrast, and wit h specific attention to the biliary system. Unless otherwise specified, incidental findings do not require dedicated imaging follow-up. 3D MIP reconstruction performed. COMPARISON: 04/15/[address] of the abdomen FINDINGS: Motion artifact somewhat limits evaluation despite attempts at repeat imaging GALLBLADDER: Multiple layering calculi at the fundus. Moderate diffuse gallbladder distention. No Wal l thickening, or pericholecystic fluid. BILE DUCTS: Common bile duct measures 8 mm distally. Along the proximal common bile duct, a segment m easuring approximately 2 cm in length demonstrates multiple heterogeneous filling defects. This may relate to some impacted stones versus an irregular common bile duct wall mass. The obstruction appear s to be partial, as the more proximal common bile/common hepatic duct is only mildly incrementally dilated, measuring 9 mm in caliber. LIVER: Normal in size, contour, and signal without evidence of fatty infiltration or iron deposition. No focal lesion. PANCREAS: Normal signal. No mass, ductal dilation, or shoshana-pancreatic fluid. SPLEEN: Normal size. No focal lesion. ADRENALS: Normal; no mass. KIDNEYS: Normal size and contour. No hydronephrosis. LYMPH NODES: No lymphadenopathy. ADDITIONAL FINDINGS: None. IMPRESSION: Mildly prominent common bile duct distally measuring 8 mm. Multiple heterogeneous filling defects along the proximal common bile duct, may relate to some impact ed calculi versus an irregular wall mass. No evidence of complete obstruction. Cholelithiasis.
[2024-04-16] MEDS: ZOLPIDEM TARTRATE 10 MG TABLET PO PRN (21:59)
--- NOTE | 2024-04-17 02:25 | CON ---
Date of Consultation: 04/16/2024 Reason For Consultation: Choledocholithiasis. History Of Present Illness: Patient is a 54-year-old female with history of diabetes, hyper tension, hyperlipidemia. Patient presented to hospital with midepigastric pain associated with nause a, vomiting, found to have cholelithiasis, cholecystitis, and choledocholithiasis. MRCP is positive for stones in the proximal common bile duct. The patient states that she has been having midepigastr ic pain over the past [address] scan showed cholelithiasis and a dilated common bile duct. Increas ed density in the gallbladder probably from the gallbladder is distended and increased density in com mon bile duct, probably a stone, mass also consideration. MRCP subsequently revealed gallstones in t he gallbladder, multilayered calculi in the gallbladder with moderate diffuse gallbladder distention, bile duct is about 8 mm, appears to be stones in the proximal common bile versus mass or other. The patient is in bed now. She states she feels well, is hungry, wants to eat, in no distress. Past Medical History: Significant for diabetes, hypertension, hyperlipidemia. Medications: I guess, her medications at home are Zestril and Norvasc, that is from the list here. Allergies: NKDA. Social History: , has significant other currently, 4 children. No tobacco. No alcohol. Family History: Father of trichinosis or worms from pork in his brain and mother from Alzh eimer disease. Also had thyroid disorder. Review of Systems: The patient has midepigastric pain 10/10, now down to at least less than 5/10 with nausea and vomitin g. She denies any fevers, chills, night sweats, muscle aches, joint aches, backaches, depression, an xiety, chest pain, shortness of breath, seizure, syncope, melena, hematochezia, coffee-ground emesis, hematuria, dysuria, polydipsia, hemoptysis. No rashes. Physical Examination: Vital Signs: The patient is 5 feet, 188 pounds, BMI of 36.7 kg/m2. She has a temperature 98.7 degre es Fahrenheit, pulse 62, respirations 17, blood pressure 172/85, O2 saturation 96%. HEENT: Normocephalic, atraumatic. Anicteric. Pupils equal, round, and reactive to light. Orophary nx clear. Neck: Supple. No masses. Respirations: Clear to auscultation bilaterally. Cardiac: Regular rate and rhythm. Gastrointestinal: Positive bowel sounds. Soft, nondistended. Mild tenderness in the midepigastric area. No peritoneal or Spear sign. No significant guarding currently, but is on pain medicines cur rently in hospital. Extremities: No clubbing, cyanosis, or edema. 2+ pulses. Neuro: Alert and oriented x3. Grossly nonfocal. 5/5 motor sensation intact to light touch. Laboratory Data: The patient has a white count of 11.6, hemoglobin 12.6, hematocrit 35.8, platelet c ount of 169, polys of 87%, lymphocytes 7%, monocytes 6%. PT 12.5, INR of 1.12, PTT of 33. She has s odium 138, potassium 3.3, chloride 105, bicarb 28, BUN of 8, creatinine of 0.5, glucose 135, calcium 9.2, magnesium 2.5, total bilirubin 3.9, AST of 432, ALT of 279, alkaline phosphatase 251. Troponin I is normal at 9.3, total protein 7.1, albumin 3.3, lipase of 90. UA, 1+ bilirubin, 2+ urobilinogen, 20-50 white blood cells, , many crystals, less than 20 bacteria, many yeast, 1+ protein. Urine negative. CT abdomen and pelvis revealed cholelithiasis and distended common bile du ct, possible stones or other. Ultrasound abdomen revealed cholelithiasis with mild gallbladder diste ntion, choledocholithiasis with dilatation of common bile duct with common bile duct measuring 14 mm and MRCP revealed stone in the proximal common bile duct versus masses versus other with cholelithias is as well, distended gallbladder. Impression: 1.Choledocholithiasis with positive MRCP and ultrasound for choledocholithiasis. CT revealing nguyen lithiasis with distended gallbladder and dilated common bile duct. 2.Cholelithiasis and cholecystitis, midepigastric pain 10/10 with nausea, vomiting. No fevers, chil ls. No jaundice. 3.History of diabetes, hypertension, hyperlipidemia. Recommendation: 1.Continue IV fluids, IV antibiotics. 2.Continue p.r.n. pain medicines, antiemetics. 3.Keep patient n.p.o. 4.ERCP now, however, been waiting all day to do this, the emergency cases stacked up in surgery. [facility] will be in emergent cases for least another 2 hours, probably till 10 o'clock to midn [facility]. I spoke to surgeon who said that the patient should be transferred if ERCP performed t omorrow, Saturday, he would not be able to do case on Saturday due to lack of staff, availability for [facility] that he uses for his surgery with laparoscopic cholecystectomy. PRINCESS/DEANDRA Voice ID: [id number] Report ID: [id number]
[2024-04-17 08:48] LABS: Absolute Lymphocytes (CBC) 0.8 K/uL (0.7-4.9); Absolute Monocytes 0.3 K/uL (0.1-1.3); Absolute Neutrophil 2.8 K/uL (1.8-8.0); Basophils % 0.4 % (0-1.3); Eosinophils % 1.2 % (0-4.4); Hematocrit 37.5 % (36.0-45.0); Hemoglobin 12.7 g/dL (12.0-15.0); Lymphocytes % 20.2 % (15.3-44.8); MCH 32.9 pg (27.0-35.0); MCHC 33.9 g/dL (32.0-36.0); MCV 96.9 fL (80-100); MPV 8.3 fL (7.6-11.3); Monocytes % 8.2 % (3.3-12.3); Platelets 190 thou/uL (152-406); RBC Red Blood Cell Count 3.87 M/uL (3.86-4.86); Red Cell Distribution Width 13.4 % (12.1-15.2)
[2024-04-17 09:13] LABS: Albumin 3.4 g/dL (3.4-5.0); Albumin/Globulin Ratio 0.9 (1.1-1.8); Anion Gap 6.5 mEq/L (5.0-15.0); Bilirubin Direct 4.6 mg/dL (0-0.2); Bilirubin Indirect, Calculated 0.9 mg/dL (0.2-0.8); Bilirubin Total 5.5 mg/dL (0.2-1.0); Magnesium 2.3 mg/dL (1.6-2.4); Potassium 3.5 mEq/L (3.5-5.1); Protein, Total 7.4 g/dL (6.4-8.2)
--- NOTE | 2024-04-17 10:45 | P.PN ---
Date of Service: 04/17/24 Subjective: reports pain resolved yesterday slept well overnight, no events overnight tentative plan for ERCP today afebrile ROS: 10 point ROS as noted above, otherwise negative Physical Exam: GEN: Alert, NAD HEENT: Normal conjunctiva, sclera anicteric CV: Regular rate and rhythm, no edema Pulm: Nonlabored respirations on room air, clear bilaterally ABD: soft, mild TTP in RUQ nondistended Neuro: Normal speech, normal affect Problem List: Choledocholithiasis, Cholelithiasis Elevated LFTs Possible UTI Hyponatremia Hypertension Hyperlipidemia NIDDM2 Choledocholithiasis, Cholelithiasis Elevated LFTs On admission, presents with epigastric, upper abdominal cramping pains radiating to back associated with nausea/vomiting for ~[address] abdomen (04/15): gallbladder distention with CBD dilatation. Increased density within CBD probably stone. Mass less likely abdominal u/s (04/15): Cholelithiasis with mild gallbladder distention. Choledocholithiasis with dilatation of the common bile duct General surgery, GI consulted MRCP (04/16): Mildly prominent CB 8 mm. Multiple heterogeneous filling defects along the proximal common bile duct, may relate to some impacted calculi versus an irregular wall mass. No evidence of complete obstruction. Cholelithiasis. GI recommending ERCP. Unsure on timing/scheduling. Depending on the results of the ERCP or if it cannot be done by today, may need to initiate transfer per surgery NPO; tentative plan for ERCP pain control continue IV fluids continue empiric zosyn (04/16-) trend LFTs - T. bili uptrending Possible UTI UA with WBC, yeast Denies dysuria, fever, chills Urine cx (04/15): mixed shanae prelim, >100k cfu/ml Blood cx (04/15): GPC in 1/4 bottles. continue empiric zosyn for now (04/16-) follow urine and blood cultures afebrile, +leukocytosis Hyponatremia monitor and replete electrolytes as needed continue IVF Hypertension Hyperlipidemia confirm home meds, restart as appropriate NIDDM2 accu-chekls, SSI confirm home meds VTE: heparin on hold for ERCP Code: Dispo: Home pending ERCP, surgery/GI recs Time Spent Managing Pts Care (In Minutes): 55 ]
[2024-04-17] MEDS ORDERED: GENTAMICIN SULF 80 MG/2ML INJ ONE (14:32)
[2024-04-17] MEDS ORDERED: GLUCAGON 1 MG/VIAL ONE (14:33)
[2024-04-17] MEDS: NA CHLORIDE 0.9% 1,000 ML ONE (15:10)
[2024-04-17] MEDS ORDERED: propofoL 200 MG/20 ML VIAL IV ONE ×2 (15:35→16:12)
[2024-04-17] MEDS ORDERED: LIDOCAINE 1% MPF 5 ML VIAL ONE ×2 (15:38→15:40)
--- NOTE | 2024-04-17 17:42 | RAD REPORT ---
EXAM: ERCP HISTORY: Abdominal pain FINDINGS: Fluoroscopy time 5.5 minutes. Fluoroscopy dose 164.5 mGy 9 fluoroscopic spot images obtained. Common bile duct cannulated and contrast instilled. Common bile duct is mildly dilated. Subsequently a stent was placed. The procedure performed by Dr. Godoy
--- NOTE | 2024-04-18 06:06 | OP ---
Date of Procedure: 04/17/2024 Surgeon: Spencer Godoy MD Indication: Choledocholithiasis, + MRCP & U/S for stones in mid CBD, jaundice, elevated liver chemistries Procedure: Endoscopic retrograde cholangiopancreatography. Procedure In Detail: The patient was brought into the endoscopy room. Informed consent was obtained, including risks of pancreatitis, infection, bleeding, perforation, aspiration, medication reaction, and other as per documentation. The patient was placed in left lateral prone position. Endoscope was placed into the mouth and extended all the way to the second portion of the duodenum, whereupon a small ampulla was identified underneath the duodenal fold. Initial interaction with ampulla revealed some mild bleeding. Deep cannulation into the common bile duct was achieved, whereupon several stones, small, approximately 2 to [address] up to approximately 6 to 7 mm were identified. Extended sphincterotomy was performed using Endocut procedure. 9 mm balloon catheter passed. Passages were performed to remove stones and debris from common bile duct. Bleeding was encountered with stone at the ampulla area. Tried to remove further. Continued bleeding. Decided to put a 7.[address] to tamponade the bleeding. Stent was placed successfully with some of the stones removed. Then, the procedure was terminated. Impression: Choledocholithiasis with several stones anywhere from 2 to 3 mm to 5 to 8 mm in size. Some of these stones removed. Bleeding was encountered upon removal of stones. 7-5 stent (7 cm, 5 Fr) was placed to tamponade the bleeding. Procedure terminated with stent placement after balloon sweeps of the biliary tree to remove stones and debris, so the patient has successful removal of stones and stent placement, 7-[address]. Stones appeared to be in the proximal bile duct, approximately 5 to 6 cm proximal from the ampulla, which were brought down with balloon sweeps. Stent was successfully placed. We will need to monitor the patient to see if bilirubin levels do decrease and liver numbers do decrease, indicative that stent is successfully draining biliary tree and the obstruction caused by the stones has been relieved. Continue IV fluids, IV antibiotics. Keep the patient n.p.o. today for possible surgery tomorrow for laparoscopic cholecystectomy. ADDENDUM: The patient was not in the system for photographs to have been taken and to be downloaded, though photos were attempted. WS/MODL Voice ID: [id number] Report ID: [id number] HAROLDO
[2024-04-18] MEDS: NA CHLORIDE 0.9% 1,000 ML IV SCH ×2 (06:32→07:15)
[2024-04-18 07:26] LABS: Absolute Eosinophils 0.1 K/uL (0-0.5); Absolute Lymphocytes (CBC) 1.1 K/uL (0.7-4.9); Absolute Monocytes 0.4 K/uL (0.1-1.3); Absolute Neutrophil 2.6 K/uL (1.8-8.0); Basophils % 0.3 % (0-1.3); Eosinophils % 1.4 % (0-4.4); Hemoglobin 11.4 g/dL (12.0-15.0); Lymphocytes % 27.1 % (15.3-44.8); MCH 32.6 pg (27.0-35.0); MCHC 33.5 g/dL (32.0-36.0); MCV 97.2 fL (80-100); MPV 8.7 fL (7.6-11.3); Monocytes % 8.5 % (3.3-12.3); Neutrophils % 62.7 % (41.7-73.7); Nucleated Red Blood Cells % 0.1 % (0-0); Platelets 158 thou/uL (152-406); Red Cell Distribution Width 13.5 % (12.1-15.2)
[2024-04-18 07:41] LABS: Anion Gap 7.1 mEq/L (5.0-15.0); Potassium 3.1 mEq/L (3.5-5.1)
[2024-04-18 07:48] LABS: Albumin 2.9 g/dL (3.4-5.0); Albumin/Globulin Ratio 0.8 (1.1-1.8); Bilirubin Direct 1.2 mg/dL (0-0.2); Bilirubin Indirect, Calculated 0.4 mg/dL (0.2-0.8); Bilirubin Total 1.6 mg/dL (0.2-1.0); Globulin 3.6 g/dL (2.3-3.5); Protein, Total 6.5 g/dL (6.4-8.2)
[2024-04-18] MEDS: KCL 20 MEQ/100 mL IVPB 20 MEQ/100 ML BAG IV SCH (10:16)
--- NOTE | 2024-04-18 10:32 | P.PN ---
Date of Service: 04/18/24 Subjective: Tolerated ERCP yesterday without complications No acute events overnight Feeling better, pain only minimal, hungry ROS: 10 point ROS as noted above, otherwise negative Physical Exam: GEN: Alert, NAD HEENT: Normal conjunctiva, sclera anicteric CV: Regular rate and rhythm, no edema Pulm: Nonlabored respirations on room air, clear bilaterally ABD: soft, minimal TTP in RUQ nondistended Neuro: Normal speech, normal affect Problem List: Choledocholithiasis, Cholelithiasis s/p ERCP with stent placement (04/18) Elevated LFTs Possible UTI Hyponatremia Hypertension Hyperlipidemia NIDDM2 Choledocholithiasis, Cholelithiasis s/p ERCP with stent placement (04/18) Elevated LFTs CT abdomen (04/15): gallbladder distention with CBD dilatation. Increased density within CBD probably stone. Mass less likely abdominal u/s (04/15): Cholelithiasis with mild gallbladder distention. Choledocholithiasis with dilatation of the common bile duct MRCP (04/16): Mildly prominent CB 8 mm. Multiple heterogeneous filling defects along the proximal common bile duct, may relate to some impacted calculi versus an irregular wall mass. No evidence of complete obstruction. Cholelithiasis. s/p ERCP (04/18): noted choledocholithiasis with several stones. Had multiple stones removed and had stent placed. Some bleeding after removal of stones noted. CLD for now; tentative plan for lap nguyen in the next few days General surgery, GI are following trend LFTs - improving post ERCP continue empiric zosyn (04/16-) pain control continue IV fluids this morning, DC this afternoon if taking more p.o. fluids Possible UTI UA with WBC, yeast Denies dysuria, fever, chills Urine cx (04/15): mixed shanae, >100k cfu/ml Blood cx (04/15): Staph CoNS in 1/4 bottles. Possible skin contaminant continue empiric zosyn for now (04/16-) follow urine and blood cultures afebrile, no leukocytosis Hyponatremia monitor and replete electrolytes as needed continue IVF Hypertension Hyperlipidemia confirm home meds, restart as appropriate NIDDM2 accu-chekls, SSI confirm home meds VTE: heparin Dispo: Home, ~2-3 days Pending lap nguyen, LFTs continue to improve Time Spent Managing Pts Care (In Minutes): 52 ]
--- NOTE | 2024-04-18 14:33 | P.PN ---
Subjective Date of Service: 04/18/24 Chief Complaint: RUQ abdominal pain, N/V, jaundice, +MRCP, choledocholithiasis, elevated nolvia Subjective: Improving (She feels well, without abdominal pain. Jaundice has resolved after ERCP with stone removal and stent placement. Tolerating clear liquid diet well.) Review of Systems Unremarkable Physical Examination - Vital Signs Temperature: 97.4 F Blood Pressure: 147/74 Pulse: 60 Respirations: 16 Pulse Ox (%): 98 - Physical Exam General: Alert, In no apparent distress, Oriented x3, Cooperative HEENT: Atraumatic, Normocephalic, PERRLA, EOMI, Sclerae nonicteric Neck: Supple Respiratory: Normal air movement Cardiovascular: Normal pulses Gastrointestinal: Soft and benign, No tenderness, No rebound, No guarding Neurological: Normal speech, Normal strength at 5/5 x4 extr - Studies Microbiology Data (last 24 hrs): 04/15/24 19:07 Clean Catch Urine [place] Count - Final >100,000 CFU/ML. 04/15/24 19:07 Clean Catch Urine - Final MIXED JANUSZ. 04/15/24 21:25 Blood - Blood Blood Culture Gram Stain - Final Assessment And Plan - Current Problems (Diagnosis) (1) Choledocholithiasis with acute cholecystitis with obstruction Current Visit: Yes Status: Acute (2) Jaundice Current Visit: Yes Status: Acute (3) Abnormal liver enzymes Current Visit: Yes Status: Acute (4) RUQ abdominal pain Current Visit: Yes Status: Acute (5) Abnormal magnetic resonance cholangiopancreatography (MRCP) Current Visit: Yes Status: Acute (6) Nausea & vomiting Current Visit: Yes Status: Acute - Plan REC: 1) lap nguyen as per surgery 2) diet as per surgery 3) ERCP with stent removal in 4 weeks 4) GI clinic f/u
[2024-04-19 05:34] LABS: Absolute Eosinophils 0.1 K/uL (0-0.5); Absolute Lymphocytes (CBC) 1.4 K/uL (0.7-4.9); Absolute Monocytes 0.3 K/uL (0.1-1.3); Absolute Neutrophil 2.1 K/uL (1.8-8.0); Basophils % 0.3 % (0-1.3); Eosinophils % 1.4 % (0-4.4); Hematocrit 35.2 % (36.0-45.0); Hemoglobin 12.1 g/dL (12.0-15.0); Lymphocytes % 34.9 % (15.3-44.8); MCHC 34.4 g/dL (32.0-36.0); MPV 8.3 fL (7.6-11.3); Monocytes % 8.4 % (3.3-12.3); Nucleated Red Blood Cells % 0.4 % (0-0); Platelets 185 thou/uL (152-406); RBC Red Blood Cell Count 3.66 M/uL (3.86-4.86); Red Cell Distribution Width 13.6 % (12.1-15.2)
[2024-04-19 05:46] LABS: Albumin/Globulin Ratio 0.8 (1.1-1.8); Anion Gap 9.4 mEq/L (5.0-15.0); Bilirubin Total 1.2 mg/dL (0.2-1.0); Globulin 3.7 g/dL (2.3-3.5); Magnesium 2.2 mg/dL (1.6-2.4); Potassium 3.4 mEq/L (3.5-5.1); Protein, Total 6.7 g/dL (6.4-8.2)
[2024-04-19] MEDS: POTASSIUM 25 MEQ EFFERV TAB PO ONE (09:38)
--- NOTE | 2024-04-19 11:02 | P.PN ---
Date of Service: 04/19/24 Subjective: Feeling better today denies any pains, no nausea no constipation or diarrhea afebrile tentative plan for surgery saturday ROS: 10 point ROS as noted above, otherwise negative Physical Exam: GEN: Alert, NAD HEENT: Normal conjunctiva, sclera anicteric CV: Regular rate and rhythm, no edema Pulm: Nonlabored respirations on room air, clear bilaterally ABD: soft, nontender, nondistended Neuro: Normal speech, normal affect Problem List: Choledocholithiasis, Cholelithiasis s/p ERCP with stent placement (04/18) Elevated LFTs Possible UTI Hyponatremia Hypertension Hyperlipidemia NIDDM2 Choledocholithiasis, Cholelithiasis s/p ERCP with stent placement (04/18) Elevated LFTs CT abdomen (04/15): gallbladder distention with CBD dilatation. Increased density within CBD probably stone. Mass less likely abdominal u/s (04/15): Cholelithiasis with mild gallbladder distention. Choledocholithiasis with dilatation of the common bile duct MRCP (04/16): Mildly prominent CB 8 mm. Multiple heterogeneous filling defects along the proximal common bile duct, may relate to some impacted calculi versus an irregular wall mass. No evidence of complete obstruction. Cholelithiasis. s/p ERCP (04/18): noted choledocholithiasis with several stones. Had multiple stones removed and had stent placed. Some bleeding after removal of stones noted. tentative plan for lap nguyen tomorrow General surgery, GI are following trend LFTs - improving post ERCP continue empiric zosyn (04/16-) pain control CLD for now Possible UTI UA with WBC, yeast Denies dysuria, fever, chills Urine cx (04/15): mixed shanae, >100k cfu/ml Blood cx (04/15): Staph CoNS in 1/4 bottles. Possible skin contaminant continue empiric zosyn for now (04/16-) follow urine and blood cultures afebrile, no leukocytosis Hyponatremia monitor and replete electrolytes as needed Hypertension Hyperlipidemia confirm home meds, restart as appropriate NIDDM2 accu-chekls, SSI confirm home meds VTE: heparin Dispo: Home, ~1-2 days Pending lap nguyen - scheduled for Saturday, LFTs continue to improve Time Spent Managing Pts Care (In Minutes): 52 ]
--- NOTE | 2024-04-19 13:17 | CON ---
Date of Consultation: 04/16/2024 Brief Hpi: The patient is a 54-year-old female with past medical history of hypertension, d iabetes, hyperlipidemia, who was brought to the ER with complaints of epigastric and right upper quad rant abdominal pain radiating down to the back. It has been going on for several days prior to her a rrival. It was associated with nausea, vomiting. She has been having normal bowel function other this. It was crampy type, significantly worse. She has had several smaller episodes before in e past but never to this level of intensity and as such, she came to the emergency room with the abov e-stated complaints. Past Medical History: Significant for hypertension, diabetes, hyperlipidemia. Past Surgical History: Denies. Allergies: NO KNOWN DRUG ALLERGIES. Home Medications: Include Norvasc and Zestril. Family History: Noncontributory. Review of Systems: A 10-point review of systems other than HPI, denies. Physical Examination: Vital Signs: At the time of my examination, her blood pressure is 166/78, pulse 70, respiratory rate 17, temperature 96.9, SpO2 95% on room air. General: She is awake, alert, oriented. Psychiatric: Appropriate, conversive. HEENT: She is normocephalic. Sclerae anicteric. Mucous membranes moist. Oropharynx clear. Neck: Supple without JVD. Chest: Normal expansion, excursion. Cardiovascular: Regular rate and rhythm. Pulmonary: Clear to auscultation bilaterally. Abdomen: Soft with positive right upper quadrant tenderness to palpation. Positive rebound. Positi ve mild guarding. Negative Spear sign at this time. Extremities: No clubbing, cyanosis, edema. Skin: Warm and dry. Laboratory Exam: Reveals white blood cell count 11.6, hemoglobin is 12.6, hematocrit of 38.5, platel et count is 169, neutrophils are 86%. Her sodium 138, potassium 3.3, chloride 105, carbon dioxide 28 , BUN 8, creatinine 0.5, glucose was 135. Magnesium 2.5. Total bilirubin 3.9, AST is 432, ALT 279, alkaline phosphatase 251, lipase was 90 on admission. She has many crystals, yeasts, and protein and urobilinogen evident in her urinary tract. She had imaging, which included an ultrasound of the rig ht upper quadrant, which showed cholelithiasis with mild gallbladder distention and choledocholithias is with dilation of the common bile duct up to 14 mm with a stone present in the duct. She additionemily lly had a CT scan which confirmed increased density within the gallbladder, probably cholelithiasis. Gallbladder is distended. Increased density within the common bile duct, probably stone or mass or other consideration, probably less likely. Assessment And Plan: This is a 54-year-old woman who comes in with signs and symptoms of choledochol ithiasis. 1.IV fluid hydration. 2.Antibiotic coverage. 3.I have explained the risks, benefits, and alternatives of laparoscopic possible open cholecystecto my with possible intraoperative cholangiogram with indocyanine green, possible laparoscopic common bi le duct exploration including, but not limited to bleeding, infection, damage to the surrounding tiss ue, need for further operative procedures, injury to bile ducts, intestines, heart attacks, blood gustabo ts, strokes, other unforeseen complications in the perioperative period. 4.Dr. Godoy gastroenterology will perform an ERCP prior to laparoscopic gallbladder surgery and we will accordingly modify our plan based on his findings. The patient displayed understanding of above stated plan, agreed to proc eed as indicated. IVET/DEANDRA Voice ID: [id number] Report ID: [id number]
--- NOTE | 2024-04-19 13:20 | P.PN ---
Subjective Date of Service: 04/19/24 Chief Complaint: RUQ abdominal pain, N/V, jaundice, +MRCP, choledocholithiasis, elevated nolvia Subjective: Improving (She feels well today without pain, tolerating CL diet.) Review of Systems Unremarkable Physical Examination - Vital Signs Temperature: 98.5 F Blood Pressure: 172/80 Pulse: 56 Respirations: 18 Pulse Ox (%): 100 - Physical Exam General: Alert, In no apparent distress, Oriented x3, Cooperative, Obese HEENT: Atraumatic, Normocephalic, PERRLA, EOMI Neck: Supple Respiratory: Normal air movement Cardiovascular: Normal pulses Gastrointestinal: Soft and benign, No tenderness, No rebound, No guarding Neurological: Normal speech, Normal strength at 5/5 x4 extr Assessment And Plan - Current Problems (Diagnosis) (1) Choledocholithiasis with acute cholecystitis with obstruction Current Visit: Yes Status: Acute (2) Jaundice Current Visit: Yes Status: Acute (3) Abnormal liver enzymes Current Visit: Yes Status: Acute (4) RUQ abdominal pain Current Visit: Yes Status: Acute (5) Abnormal magnetic resonance cholangiopancreatography (MRCP) Current Visit: Yes Status: Acute (6) Nausea & vomiting Current Visit: Yes Status: Acute - Plan REC: 1) lap nguyen as per surgery 2) diet as per surgery 3) ERCP with stent removal / possible Spyglass - EUS to assess biliary stricture in the proximal CBD at bifurcation & CA125 4) GI clinic f/u
[2024-04-19] MEDS ORDERED: HYDRALAZINE HCL 20 MG/ML VIAL IV PRN (20:05)
[2024-04-19] MEDS: AMLODIPINE 10 MG TAB PO SCH (20:47)
[2024-04-20 04:49] LABS: Absolute Eosinophils 0.1 K/uL (0-0.5); Absolute Lymphocytes (CBC) 1.2 K/uL (0.7-4.9); Absolute Monocytes 0.3 K/uL (0.1-1.3); Absolute Neutrophil 1.8 K/uL (1.8-8.0); Basophils % 0.6 % (0-1.3); Eosinophils % 1.9 % (0-4.4); Hematocrit 36.7 % (36.0-45.0); Hemoglobin 12.2 g/dL (12.0-15.0); Lymphocytes % 35.6 % (15.3-44.8); MCH 32.3 pg (27.0-35.0); MCHC 33.3 g/dL (32.0-36.0); MPV 8.4 fL (7.6-11.3); Monocytes % 7.5 % (3.3-12.3); Neutrophils % 54.4 % (41.7-73.7); Platelets 174 thou/uL (152-406); RBC Red Blood Cell Count 3.78 M/uL (3.86-4.86)
[2024-04-20 05:17] LABS: Albumin 3.2 g/dL (3.4-5.0); Albumin/Globulin Ratio 0.8 (1.1-1.8); Anion Gap 9.5 mEq/L (5.0-15.0); Bilirubin Total 1.1 mg/dL (0.2-1.0); Globulin 3.8 g/dL (2.3-3.5); Magnesium 2.2 mg/dL (1.6-2.4); Potassium 3.5 mEq/L (3.5-5.1)
--- NOTE | 2024-04-20 09:33 | P.PN ---
Date of Service: 04/20/24 Subjective: Feeling better Denies any pains no issues overnight tentative plan for surgery this afternoon ROS: 10 point ROS as noted above, otherwise negative Physical Exam: GEN: Alert, NAD HEENT: Normal conjunctiva, sclera anicteric CV: Regular rate and rhythm, no edema Pulm: Nonlabored respirations on room air, clear bilaterally ABD: soft, nontender, nondistended Neuro: Normal speech, normal affect Problem List: Choledocholithiasis, Cholelithiasis s/p ERCP with stent placement (04/18) Elevated LFTs Possible UTI Hyponatremia Hypertension Hyperlipidemia NIDDM2 Choledocholithiasis, Cholelithiasis s/p ERCP with stent placement (04/18) Elevated LFTs CT abdomen (04/15): gallbladder distention with CBD dilatation. Increased density within CBD probably stone. Mass less likely abdominal u/s (04/15): Cholelithiasis with mild gallbladder distention. Choledocholithiasis with dilatation of the common bile duct MRCP (04/16): Mildly prominent CB 8 mm. Multiple heterogeneous filling defects along the proximal common bile duct, may relate to some impacted calculi versus an irregular wall mass. No evidence of complete obstruction. Cholelithiasis. s/p ERCP (04/18): noted choledocholithiasis with several stones. Had multiple stones removed and had stent placed. Some bleeding after removal of stones noted. tentative plan for lap nguyen later today General surgery, GI are following trend LFTs - improving post ERCP continue empiric zosyn (04/16-) pain control CLD for now Possible UTI UA with WBC, yeast Denies dysuria, fever, chills Urine cx (04/15): mixed shanae, >100k cfu/ml Blood cx (04/15): Staph CoNS in 1/4 bottles. Possible skin contaminant continue empiric zosyn for now (04/16-) follow urine and blood cultures afebrile, no leukocytosis Hyponatremia monitor and replete electrolytes as needed Hypertension Hyperlipidemia confirm home meds, restart as appropriate NIDDM2 accu-chekls, SSI confirm home meds VTE: heparin Dispo: Home, anticipate DC tomorrow Pending lap nguyen today, repeat labs in AM Time Spent Managing Pts Care (In Minutes): 40 ]
--- NOTE | 2024-04-20 12:11 | EKG ---
Test Date: 2024-04-15 Test Time: 21:53:56 Weed Cooking Operator: GERARDO MEASUREMENT RESULTS: Intervals: Rate: 68 NC: 166 QRSD: 98 QT: 422 QTc: 448 [place]: P: 45 NC: 166 QRS: -8 T: 49 INTERPRETIVE STATEMENTS: Normal sinus rhythm Nonspecific T wave abnormality Abnormal ECG No previous ECG available for comparison Electronically Signed On 04-20-24 12:04:41 SALES REPRESENTATIVE ADVERTISING by Samuel Fitch
[2024-04-20] MEDS ORDERED: FENTANYL CITR 100 MCG/2 ML ONE (13:00)
[2024-04-20] MEDS ORDERED: MIDAZOLAM HCL 2 MG/2 ML INJ ONE (13:00)
[2024-04-20] MEDS ORDERED: propofoL 200 MG/20 ML VIAL IV ONE (13:00)
[2024-04-20] MEDS ORDERED: LIDOCAINE 2% MPF 5 ML VIAL ONE (13:00)
[2024-04-20] MEDS ORDERED: ONDANSETRON 4 MG/2 ML VIAL ONE (13:00)
[2024-04-20] MEDS: Ringers Lactate 1,000 ML IV ONE (13:20)
[2024-04-20] MEDS: SUGAMMADEX SODIUM 200 MG/2 ML VIAL IV ONE (13:39)
[2024-04-20] MEDS ORDERED: ROCURONIUM 50 MG/5 ML VIAL IV ONE (14:20)
[2024-04-20] MEDS ORDERED: GLYCOPYRROLATE 0.2 MG/ML SYR ONE ×2 (14:35→15:19)
[2024-04-20] MEDS ORDERED: EPHEDRINE SULF 50 MG/ML VIAL ONE (14:35)
[2024-04-20] MEDS ORDERED: dexAMETHasone 10 MG/ML VIAL ONE (14:35)
[2024-04-20] MEDS: LIDOCAINE HCL/EPINEPHRINE 20 ML MDV ONE (14:41)
[2024-04-20] MEDS ORDERED: KETOROLAC 30 MG/ML INJ ONE (15:24)
--- NOTE | 2024-04-20 15:24 | P.OP ---
Preoperative diagnosis: Choledocholithiasis with Cholecystitis Postoperative diagnosis: Choledocholithiasis with Cholecystitis Primary procedure: Laparoscopic Cholecystectomy with ICG Anesthesia: GETA + Local Estimated blood loss: <5cc Specimen: Gallbladder Findings: Distended GB, short cystic duct Complications: None Implants: Mary Powder Transferred to: Recovery Room Condition: Good
[2024-04-20] MEDS: HYDROMORPHONE HCL 1 MG/ML INJ ONE (15:54)
[2024-04-20] MEDS: HYDROCODONE/APAP 5/325 MG TAB PO PRN (17:21)
[2024-04-20 22:30] VITALS: O2SAT 98
--- NOTE | 2024-04-21 01:29 | OP ---
Date of Procedure: 04/20/2024 Surgeon: Jorge Meier MD, Preoperative Diagnoses: Choledocholithiasis with cholecystitis. Postoperative Diagnoses: Choledocholithiasis with cholecystitis. Procedures Performed: Laparoscopic cholecystectomy with indocyanine green cholangiography. Anesthesia: General endotracheal with local, 1% lidocaine. Estimated Blood Loss: Less than 5 cc. Specimen: Gallbladder. Findings: 1.Distended gallbladder. 2.Short cystic duct. Complications: None. Implants: Mary hemostatic powder. Disposition: The patient was transferred to recovery room in good condition. Brief History Of Present Illness: The patient is a 54-year-old woman, who presented to the hospital with choledocholithiasis with cholecystitis. She was taken by Dr. Godoy for ERCP, stone extraction, and common bile duct stent placement. She tolerated that well. Her LFTs significantly improved and as such, she was deemed appropriate for operative intervention. Procedure In Detail: After informed consent was obtained, the patient was brought to the operating r oom, and prepped and draped in the usual sterile fashion. After adequate anesthesia was achieved, I made a supraumbilical incision down to subcutaneous tissue. A 5 mm 0-degree optical trocar was intro duced without incident or complication. Insufflation was obtained to 15 mmHg at this time. There wa s no injury to vital structure upon entering the abdomen. Three additional trocars were placed, one in the epigastrium, one in the right upper quadrant, and one in the right mid abdomen. All these wer e similarly anesthetized and sharply incised. A 5 mm trocar was placed under direct visualization wi thout incident or complication. The umbilical trocar site was upsized to 12 mm under direct visualiz ation without incident or complication. The patient was positioned in the head up right-side up posi tion. Ratcheted grasper was used to grasp the patient's gallbladder, placed toward the patient's rig ht shoulder. Dissection continued down the Lilo pouch of the gallbladder, dissecting out 2 struc tures, identified as both cystic duct and cystic artery. Cystic duct was found to be quite short at this point. Indocyanine green cholangiography confirmed the anatomic structures as described. Criti christine view of safety was obtained at this point. After dissection, continued skeletonized structures w ere visualized. I used the double titanium clips, doubly on the proximal side and singly on the dist al side of both cystic duct and cystic artery. The cystic duct was then cut between ema without e vidence of complication. The cystic artery was then ligated using the LigaSure device. At this poin t, the gallbladder was removed from the hepatic fossa without incident or complication. There was mi nimal bleeding that required fulguration with the electrocautery at this point. There was no signifi cant injury at this point to any other structures. The gallbladder was placed in the EndoCatch bag, removed through the umbilical trocar, and sent off for pathologic examination. At this point, the ab domen was copiously irrigated once again, and indocyanine green cholangiography confirmed no addition al bile leakage, and the flow of bile was good through the cystic duct common duct confluence in both superior and inferior aspects, and there was no leakage throughout the procedure. No additional hem ostatic measures were required. I then sprayed Mary hemostatic powder. After appropriately irriga ting, I suctioned out the right upper quadrant and the subhepatic space without incident or complicat ion. The Mary powder was in good position. The patient was positioned back in neutral position. The remaining effluent was suctioned out. The 12 mm trocar site was then closed using a Rahul hess suture passer with 0 Vicryl in interrupted fashion, with good approximation of tissues. The abdo men was desufflated under direct visualization without incident or complication. Remaining trocars w ere removed. All skin incisions were then copiously irrigated and closed with interrupted atmiko. A sterile dressing was placed over top. The patient tolerated the procedure without incident or comp lication, and transferred to PACU in good condition. All counts were correct at the end of the case. TK/MODL Voice ID: [id number] Report ID: [id number]
[2024-04-21 04:41] LABS: Absolute Lymphocytes (CBC) 1.7 K/uL (0.7-4.9); Absolute Monocytes 0.5 K/uL (0.1-1.3); Absolute Neutrophil 3.8 K/uL (1.8-8.0); Basophils % 0.3 % (0-1.3); Eosinophils % 0.2 % (0-4.4); Hematocrit 37.6 % (36.0-45.0); Hemoglobin 12.8 g/dL (12.0-15.0); Lymphocytes % 27.9 % (15.3-44.8); MCH 32.8 pg (27.0-35.0); MCHC 34.1 g/dL (32.0-36.0); Monocytes % 8.2 % (3.3-12.3); Neutrophils % 63.4 % (41.7-73.7); Nucleated Red Blood Cells % 0.1 % (0-0); Platelets 185 thou/uL (152-406); RBC Red Blood Cell Count 3.92 M/uL (3.86-4.86); Red Cell Distribution Width 13.5 % (12.1-15.2)
[2024-04-21 04:54] LABS: Albumin 3.1 g/dL (3.4-5.0); Albumin/Globulin Ratio 0.8 (1.1-1.8); Anion Gap 8.6 mEq/L (5.0-15.0); Globulin 3.9 g/dL (2.3-3.5); Magnesium 2.2 mg/dL (1.6-2.4); Potassium 3.6 mEq/L (3.5-5.1)
[2024-04-21] MEDS: POTASSIUM 25 MEQ EFFERV TAB PO ONE ×2 (05:19→09:39)
--- NOTE | 2024-04-21 12:23 | P.DS ---
Admission Date: 04/15/24 Discharge Date: 04/21/24 Disposition: ROUTINE DISCHARGE Discharge Condition: GOOD Reason for Admission: RUQ abdominal pain, N/V, jaundice, +MRCP, choledocholithiasis, elevated nolvia Brief History of Present Illness: 54 yrs old Female with past medical history of hypertension, diabetes, hyperlipidemia who was brought to ER with abdominal pain associated with nausea and vomiting. Patient was assessed in the ER and was had a CT which was consistent with cholelithiasis with dilated CBD and was admitted for further management. Hospital Course: Patient admitted to the medical floor problems addressed: Diagnosis Choledocholithiasis s/p ERCP with stent placement (04/18) and lap cholecystectomy Elevated LFTs Possible UTI Hyponatremia Hypertension Hyperlipidemia NIDDM2 Choledocholithiasis, Cholelithiasis s/p ERCP with stent placement (04/18) Elevated LFTs CT abdomen (04/15): gallbladder distention with CBD dilatation. Increased density within CBD probably stone. Mass less likely abdominal u/s (04/15): Cholelithiasis with mild gallbladder distention. Choledocholithiasis with dilatation of the common bile duct MRCP (04/16): Mildly prominent CB 8 mm. Multiple heterogeneous filling defects along the proximal common bile duct, may relate to some impacted calculi versus an irregular wall mass. No evidence of complete obstruction. Cholelithiasis. s/p ERCP (04/18) by GI Dr. Godoy: noted choledocholithiasis with several stones. Had multiple stones removed and had stent placed. Patient evaluated by Dr. Meier who performed lap cholecystectomy. Patient monitored after cholecystectomy, liver enzymes trending down. Patient treated empirically with IV Zosyn and transition to oral Augmentin on d ischarge. Patient tolerated diet. Possible UTI UA with WBC, yeast Denies dysuria, fever, chills Urine cx (04/15): mixed shanae, >100k cfu/ml Blood cx (04/15): Staph CoNS in 1/4 bottles. Possible skin contaminant Patient treated empirically with IV Zosyn. She is discharged with oral Augmentin. Hyponatremia Resolved. Hypertension Home antihypertensives resumed. Vital Signs/Physical Exam: Temp Pulse Resp BP Pulse Ox 98.6 F 69 16 132/70 95 04/21/24 08:00 04/21/24 08:00 04/21/24 08:00 04/21/24 08:00 04/21/24 08:00 General: Alert, In no apparent distress, Oriented x3 HEENT: Mucous membr. moist/pink, Sclerae nonicteric Neck: JVD not distended Respiratory: Clear to auscultation bilaterally, Normal air movement Cardiovascular: No edema, Regular rate/rhythm, Normal S1 S2 Gastrointestinal: Soft and benign, Non-distended Musculoskeletal: No swelling Integumentary: No rashes Neurological: Normal strength at 5/5 x4 extr Laboratory Data at Discharge: WBC 6.00 thou/uL (4.3-10.9) 04/21/24 04:12 Hgb 12.8 g/dL (12.0-15.0) 04/21/24 04:12 Hct 37.6 % (36.0-45.0) 04/21/24 04:12 Plt Count 185 thou/uL (152-406) 04/21/24 04:12 PT 12.5 SECONDS (9.4-12.5) 04/15/24 21:25 INR 1.12 04/15/24 21:25 APTT 33.0 SECONDS (24.3-36.9) 04/15/24 21:25 Sodium 136 mEq/L (136-145) 04/21/24 04:12 Potassium 3.6 mEq/L (3.5-5.1) 04/21/24 04:12 BUN 9 mg/dL (7-18) 04/21/24 04:12 Creatinine 0.48 mg/dL (0.55-1.02) L 04/21/24 04:12 Glucose 109 mg/dL (74-106) H 04/21/24 04:12 Phosphorus 4.1 mg/dL (2.5-4.9) 04/20/24 04:28 Magnesium 2.2 mg/dL (1.6-2.4) 04/21/24 04:12 Total Bilirubin 1.0 mg/dL (0.2-1.0) 04/21/24 04:12 AST 56 U/L (15-37) H 04/21/24 04:12 ALT 125 U/L (13-56) H 04/21/24 04:12 Alkaline Phosphatase 214 U/L (45-117) H 04/21/24 04:12 Lipase 26 U/L (13-75) 04/18/24 06:20 Home Medications: Amlodipine [Norvasc*] 10 mg PO DAILY 04/16/24 Lisinopril [Zestril] 20 - 25 mg PO DAILY 04/16/24 Amox/Clavulanate [Augmentin 875-125 Tab] 1 each PO BID #14 tab 04/21/24 Hydrocodone 5/APAP 325 [[place] 5/325*] 1 tab PO Q6H PRN #12 tab 04/21/24 New Medications: Amox/Clavulanate [Augmentin 875-125 Tab] 1 each PO BID #14 tab Hydrocodone 5/APAP 325 [[place] 5/325*] 1 tab PO Q6H PRN #12 tab PRN Reason: Pain Scale 5-7 (Moderate) Physician Discharge Instructions: Physician discharge instructions: Patient presented with abdominal pain associated with nausea/vomiting secondary to impacted gallstone. Initial CT abdomen, ultrasound noted cholelithiasis with gallbladder distention, Choledocholithiasis with CBD dilatation. MRCP noted mildly prominent CB 8 mm. Multiple heterogeneous filling defects along the proximal common bile duct, may relate to some impacted calculi versus an irregular wall mass. General surgery and GI were consulted. Patient underwent ERCP with Dr. Godoy on 04/18 which noted choledocholithiasis with several stones. Dr. Godoy was able to remove multiple stones removed and had successful stent placement. LFTs started improving post ERCP. Patient was monitored over the weekend, and underwent lap nguyen on 04/[address] Meier Medications: Follow up: PCP 3-5 days GI 2-[address] Meier in office in ~1 week Please call to schedule / confirm appointments No heavy lifting > 10 lbs for 4-6 weeks or otherwise instructed by Dr. Hardeep Tomlinay to shower with running water. Do no submerge wound underwater. Diet: Wolfe Activity: No lifting more than 10 lbs Followup: Jorge Meier MD [ACTIVE - CAN ADMIT] - 1-2 Weeks NONE,NONE [Primary Care Provider] - Time spent managing pt's care (in minutes): 32
[2024-04-21 12:39] VITALS: BP 133/69; TEMP 98.1
== END 2024-04-21 13:24 | disposition home or self-care (01) | DRG 418 ==
LOC: ER 18:19 → 2ND 21:53
PROVIDERS: ADMIT Family Medicine; ATTEND Internal Medicine
PROC: 0FC98ZZ Extirpation of Matter from Common Bile Duct, Via Natural or Artificial Opening Endoscopic (ICD-10-PCS; 2024-04-17)
PROC: BF121ZZ Fluoroscopy of Gallbladder using Low Osmolar Contrast (ICD-10-PCS; 2024-04-20)
PROC: 0FT44ZZ Resection of Gallbladder, Percutaneous Endoscopic Approach (ICD-10-PCS; principal; 2024-04-20 15:00)
DX: K80.43 Calculus of bile duct with acute cholecystitis with obstruction (principal); E87.1 Hypo-osmolality and hyponatremia; N39.0 Urinary tract infection, site not specified; R17 Unspecified jaundice; I10 Essential (primary) hypertension; E78.5 Hyperlipidemia, unspecified; E11.65 Type 2 diabetes mellitus with hyperglycemia; R79.89 Other specified abnormal findings of blood chemistry; Z79.899 Other long term (current) drug therapy
CPT/HCPCS: 36415; 71045; 74177; 74181; 76705; 80048; 80053; 80076; 81001; 81025; 82947; 83605; 83690; 83735; 84100; 84484; 85025; 85610; 85730; 86304; 87040; 87086; 87088; 87205; 88304; 93005; 96361; 96374; 96375; 99285; J1100; J1171; J1580; J1610; J1644; J2003; J2250; J2405; J2543; J2704; J3010; J3480; J7030; J7040; J7120; J7799; Q9967